=== PATIENT | female | born 1940 | race Caucasian/White ===

== ENCOUNTER 2017-09-23 16:34 | Inpatient (IN) | payer MEDICARE ==
[~2017-09-23 16:34] MED LIST: ISOVUE-370 76%-LOCM 1 ML ONE
[2017-09-23 18:04] LABS: #Eosinphils 0.1 thou/uL (0.0-0.7); #Lymphocytes 0.6 thou/uL (1.20-3.40); #Monocytes 0.1 thou/uL (0.11-0.59); #Neutrophils 11.5 thou/uL (1.40-6.50); %Basophils 0.2 % (0.0-1.0); %Monocytes 0.7 % (0.0-10.0); %Neutrophils 93.2 % (42.0-75.0); Hemoglobin 12.9 g/dL (12.0-16.0); Mean Corpuscular HGB CONC 33.1 g/dL (32.0-36.0); Mean Corpuscular Hemoglobin 30.6 pg (27.0-31.0); Mean Corpuscular Volume 92.4 fl (81.0-99.0); Mean Platelet Volume 5.9 fL (7.4-10.4); Platelet Count 254 thou/uL (130-400); RBC Distribution Width 12.6 % (11.5-14.5); Red Blood Cell (RBC) Count 4.21 mill/uL (4.20-5.40); White Blood Cell (WBC) Count 12.4 thou/uL (4.8-10.8)
[2017-09-23 18:09] LABS: INR-International Normal Ratio 1.1; Prothrombin Time 14.1 SEC (12.0-14.7)
[2017-09-23 18:27] LABS: ALT (SGPT) 15 U/L (8-55); AST (SGOT) 18 U/L (5-34); Albumin 3.6 g/dL (3.4-4.8); Alkaline Phosphatase 62 U/L (40-150); Anion Gap 12 mmol/L (10-20); BUN (Urea Nitrogen) 25 mg/dL (9.8-20.1); Bilirubin, Total 0.7 mg/dL (0.2-1.2); Calc. Creatinine Clearance 0 mL/min (70-130); Calcium 9.5 mg/dL (7.8-10.44); Carbon Dioxide 26 mmol/L (23-31); Chloride 103 mmol/L (98-107); Estimated GFR-MDRD 74; Globulin 2.3 g/dL (2.4-3.5); Glucose 138 mg/dL (83-110); Potassium 4.6 mmol/L (3.5-5.1); Protein, Total 5.9 g/dL (6.0-8.3); Sodium 136 mmol/L (136-145)
--- NOTE | 2017-09-23 18:51 | CT ---
NONCONTRAST CT HEAD: Date: 09/23/17 HISTORY: Head bleed, right-sided weakness for 2 days. COMPARISON: CT head obtained from [facility] on 09/23/17 at 1157 hours. FINDINGS: As noted on the prior exam, there is a large, heterogeneous mass, which is predominantly demonstrates increased density centrally. This is centered in the left frontoparietal and temporal lobes, with la rge amount of adjacent vasogenic edema and sulcal effacement, as well as effacement of the body of th e left lateral ventricle. This mass measures 4.5 cm x 3.8 cm in greatest dimensions. As noted on the prior study, there is again shift of the midline structures to the right measuring approximately 7.0 mm. There is a smaller increased density focus present in the right anterior frontal lobe with adjacent l ow density area probably related to adjacent edema as well. There is mass effect on the occipital horn of the left lateral ventricle due to the large cerebral ma ss on the left. There is decreased attenuation seen extending across the corpus callosum with associa conor vasogenic edema, within the posterior right frontal lobe/parietal lobe. There has been no interval change from the prior exam. IMPRESSION: Findings likely related to hemorrhagic metastatic lesions, with large lesion in the left cerebral hem isphere resulting in a large amount of vasogenic edema, mass effect, and midline shift. The vasogenic edema extends across the midline in the region of the corpus callosum and into the right cerebral he misphere. MRI is recommended. Above findings discussed with Dr. Coreas in the emergency department on 09/23/17 at 1839 hours. CODE CR. POS: [facility]
--- NOTE | 2017-09-23 19:32 | CON ---
DATE OF CONSULTATION: 09/23/2017 This is a 50-minute initial patient consult, which greater than 50% of the exam was spent counseling and coordinating patient's care. Remainder of the exam was spent in review of patient's medical vanessa rds and appropriate imaging studies CHIEF COMPLAINT: Right-sided weakness for the past 2 weeks. HISTORY OF PRESENT ILLNESS: Ms. Chase is a pleasant 76-year-old female who presents to [facility] as a transfer from [facility] [place] [place] with the above complaints. The patient s tates over the past 2 weeks, she has noticed right foot weakness, which has become progressively wors e over the past 2 days. She has noticed some balance issues and has required the use of a rolling wa lker over the past 2 weeks, but again has noticed over the past 2 days, significant decline in right foot function. The patient also notes that when looking back, she probably has weakness into the ent sixto right leg and even right arm. The patient does have some difficulty with short term and long ter m memory issues and her helps to provide some of the history. The patient and her kn ow that she stopped playing her regular bridge games due to the fact that she had difficulty remember ing her cart. This roughly began in 07/2017. The patient has a significant smoking history and does state that she stopped roughly 5 years ago. She has had a productive cough for several weeks to liz n months and was diagnosed with pneumonia 2 weeks ago, but it is unclear if she is on any antibiotics for this. Head CT done at [facility] by report notes multiple lesions into the brain most notably in the right frontal region and in the left temporal lobe. I do not have this for review at this time. The patient is also currently on Plavix, having peripheral artery stents placed in the bi lateral lower extremities roughly 6 months ago. She has not yet been seen by Oncology for the possib ility of diagnosis of lung cancer. In the [facility], she was given a loading dose of 1000 mg of Keppra and 60 mg IV of Decadron. The patient does not report any blurred vision, nausea, vomit ing or headache. PHYSICAL EXAMINATION: The patient is awake and alert and somewhat appropriate. Again, her h elps to provide some of her history. She is oriented to person and notes that she does go by gender. She does know her birthday but states that the year is 2018 and she is unsure where she currently i s. She does have mild weakness in the right upper extremity with some mild to moderate weakness in t he right lower extremity, although she is able to raise the right leg to gravity. She has good stren gth in the left upper and left lower extremities. She appears to have intact sensation to light touc h throughout. All of the extremities has no worrisome myelopathic features on exam including negativ e Waddell's bilaterally and no increased tone. She does not appear to have a pronator drift on the r ight. She does have a little difficulty with the index [id number] testing on the right. I attem pted to test her visual confrontation, but she is unable to follow this. She has multiple bruises on her skin consistent with Plavix use. Her pupils are equal, round, and reactive bilaterally. GCS cu rrently is 14 given her confusion. IMPRESSION: 1. Right upper and lower extremity weakness with multiple brain lesions. 2. History of tobacco abuse, though supposedly stopped for the past 5 years. 3. Peripheral artery disease with stent placement 6 months ago, on Plavix. PLAN: I discussed the patient's case and imaging with Dr. Fonseca. At this time, we will admit the p atient to the stroke unit with q.2 hours neuro checks. We would like all blood thinners and Plavix t o be held at this time. Also, we will keep her head of bed elevated at 30 degrees at all times. She may have a regular diet. Repeat the patient's noncontrast head CT because I am unable to review her CT scan at [facility]. I also ordered a chest, abdomen, and pelvis CT to evaluate for poss ibility of metastatic disease. We will also obtain a brain MRI with and without contrast for stereot actic protocol to evaluate these brain lesion failure. At this time, the patient does not require ne urosurgical intervention. We need more information prior to determination of the next step in treatm ent. We will follow up on head CT and of course the results of the MRI when they are available. Lawrence flores also continued the patient on maintenance dose of Keppra 500 mg IV b.i.d. and Decadron 4 mg q.6 h ours IV as well as a famotidine. Currently, the patient's white blood cell count is 12.4. We will m onitor that. Her INR right now is 1.1, PT and APTT are within the normal limits. Her sodium is good at 136 and normal creatinine. ASSESSMENT AND PLAN: Again, we will check back with the patient's studies have been completed. Amado flores also consulted our medical team to help with medical management probability of also contacting On cology, but again we will await the results of the patient's imaging studies. Please call with any q uestions or changes in patient's neurologic status.
[2017-09-23] MEDS ORDERED: Calcium Carbonate 500 MG ChewTAB PO PRN (20:41)
[2017-09-23] MEDS ORDERED: Mag-Al 1200 mg/1200 mg/30 ML UDCUP PO PRN (20:41)
[2017-09-23] MEDS ORDERED: Acetaminophen 325 MG TAB PO PRN (20:41)
[2017-09-23] MEDS ORDERED: Ondansetron HCl/PF 4 MG/2 ML Vial IVP PRN (20:41)
[2017-09-23] MEDS: Sodium Chloride 0.9% 1,000 ML IV SCH (22:36)
[2017-09-23] MEDS: Famotidine/PF 20 mg/2ml Vial SLOW IVP SCH (22:37)
[2017-09-23] MEDS: Docusate 100 MG CAP PO SCH (22:38)
[2017-09-24] MEDS: Dexamethasone 4 MG in Sodium Chloride 0.9% 50 ML IVPB SCH ×4 (00:07→17:32)
[2017-09-24 00:48] VITALS: BMI 19.5
[2017-09-24 06:19] LABS: #Basophils 0.1 thou/uL (0.0-0.2); #Eosinphils 0.1 thou/uL (0.0-0.7); #Lymphocytes 0.6 thou/uL (1.20-3.40); #Monocytes 0.4 thou/uL (0.11-0.59); #Neutrophils 8.9 thou/uL (1.40-6.50); %Basophils 0.8 % (0.0-1.0); %Eosinophils 0.8 % (0.0-10.0); %Lymphocytes 5.8 % (21.0-51.0); %Monocytes 3.9 % (0.0-10.0); %Neutrophils 88.8 % (42.0-75.0); Hemoglobin 11.6 g/dL (12.0-16.0); Mean Corpuscular HGB CONC 31.9 g/dL (32.0-36.0); Mean Corpuscular Hemoglobin 29.9 pg (27.0-31.0); Mean Corpuscular Volume 93.7 fl (81.0-99.0); Mean Platelet Volume 6.4 fL (7.4-10.4); Platelet Count 247 thou/uL (130-400); RBC Distribution Width 12.6 % (11.5-14.5); Red Blood Cell (RBC) Count 3.88 mill/uL (4.20-5.40); White Blood Cell (WBC) Count 10.1 thou/uL (4.8-10.8)
[2017-09-24 06:33] LABS: Anion Gap 11 mmol/L (10-20); BUN (Urea Nitrogen) 24 mg/dL (9.8-20.1); Calc. Creatinine Clearance 45 mL/min (70-130); Calcium 9.2 mg/dL (7.8-10.44); Carbon Dioxide 23 mmol/L (23-31); Chloride 103 mmol/L (98-107); Estimated GFR-MDRD 77; Glucose 131 mg/dL (83-110); Potassium 4.5 mmol/L (3.5-5.1); Sodium 132 mmol/L (136-145)
--- NOTE | 2017-09-24 07:46 | CT ---
CT SCAN CHEST WITH IV CONTRAST CT ABDOMEN AND PELVIS WITH IV CONTRAST: Date: 09/23/17 HISTORY: Patient with brain lesion. History of smoking. FINDINGS: CT THORAX: There is a large right hilar mass with extension into the mediastinum which measures 7.0 cm x 4.8 cm. This mass also appears to extend into the right bronchus intermedius, as well as into bronchi of the right lower lobe, although no appreciable postobstructive changes are present. There is a 1.8 cm peripherally located nodular opacity within the anterolateral right lower lobe with an opacity within the left lower lobe posteriorly measuring 3.7 cm x 1.9 cm. These peripherally loca conor opacities could be related to metastatic lesions, although focal areas of pneumonitis is a possib ility. There are emphysematous changes seen within the upper lobes bilaterally. There is a small nodular den sity present in the left upper lobe laterally measuring 1.1 cm. There is a filling defect seen within the distal portion of the trachea extending to the right mainst em bronchus. Endobronchial lesion is a possibility. This could be further evaluated with bronchoscopy . There is an enlarged lymph node in the AP window which measures approximately 1.5 cm in short axis di mension. No axillary lymph nodes are seen. Vascular calcifications seen in the coronary arteries, as well as involving the thoracic aorta. CT ABDOMEN AND PELVIS: There are a few scattered subcentimeter, too small to characterize, hypodense lesions within the left hepatic lobe which cannot be further characterized. There is scarring involving the medial aspect mid portion right kidney. Left kidney has a normal CT a ppearance. The spleen, pancreas, left adrenal gland, and urinary bladder have a normal CT appearance. There is a heterogeneous nodule involving the right adrenal gland which measures 2.4 cm. This cannot be characterized as an adrenal adenoma on this exam and may represent a metastatic lesion. There is focal narrowing seen within the body of the stomach with suggested thickening of the lynne. This may be attributable to peristalsis. A similar finding is seen within the region of the gastric a ntrum. This can be further evaluated with either upper GI or endoscopy. There is an infrarenal abdominal aortic aneurysm which measures 3.3 cm. Dense vascular calcification seen in the abdominal aorta and iliac arteries. There is colonic diverticulosis with a moderate amount of retained fecal material seen throughout the colon. There is a calcified mass within the uterus, probably related to a uterine fibroid. No lymphadenopathy is seen in the abdomen or pelvis. There is a stent partially imaged in the proximal superficial femoral arteries bilaterally. No lytic or sclerotic osseous lesions are identified. IMPRESSION: 1. Right hilar mass with extension of the mass into the bronchus intermedius and right mainstem bron chus. However, no postobstructive changes are seen at this time within the right lower lobe. There is a low density area seen within the distal trachea and right mainstem bronchus which could be related to endobronchial lesion and/or secretions. This mass in the right hilar region is likely related to primary malignancy. 2. Patchy nodular opacities in each lower lobe, which could be related to areas of pneumonitis; alth ough, metastatic lesions cannot be entirely excluded. 3. Enlarged AP window lymph node. 4. Right adrenal nodule, which is slightly heterogeneous in appearance. This cannot be accurately ch aracterized on this post enhanced CT scan exam, but given the right hilar mass, a metastatic lesion c annot be excluded. If warranted, a PET CT scan exam can be performed for further evaluation versus CT abdomen with and without IV contrast. 5. Scarring right kidney. 6. Colonic diverticulosis. 7. Infrarenal abdominal aortic aneurysm. 8. Subcentimeter, too small to characterize, hypodense lesion in left hepatic lobe. 9. Prominent vascular calcifications. POS: [facility]
[2017-09-24] MEDS ORDERED: Hydrochlorothiazide 25 MG TAB PO SCH (09:00)
--- NOTE | 2017-09-24 09:27 | PRG ---
DATE OF SERVICE: 09/24/2017 This is a 30 minute initial hospital visit note in which 30 minutes were spent in reviewing the imagi ng, record, evaluation, examination of the patient, and formulation of a plan. Greater than 50% of t he time was spent in counseling on Lelo Chase. 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 Ms. Chase who goes by Natalee, is a very pleasant 76-year-old woman with a longstanding history of nicotine use. She an d her states she ceased nicotine use 5 years ago. However, she has had COPD and was treated even a couple weeks ago for a cough. She has had a progressive failure to thrive and neurological d ecline with namely right-sided greater than left-sided weakness and word finding difficulty over the last couple months, but certainly worse over the last couple of weeks. Review of a head CT from [facility] [place] demonstrates at least 2 metastatic lesions with a large lesion in the left post erior aspect of the shahid radiata extending into the atrium of the left lateral ventricle. There is significant vasogenic edema and mild midline shift. There is a smaller lesion apparently in the rig ht frontal region with associated hypodensity consistent also with vasogenic edema. A CT scan of the chest, abdomen, and pelvis demonstrates an adrenal lesion, likely metastatic with a large right audrey r lesion with concern of tracheobronchial invasion. The patient is also on Plavix for history of per ipheral arterial disease and stenting. PHYSICAL EXAMINATION: She is alert. She is appropriate, but does have significant word finding diff iculty and pauses frequently when speaking, but is appropriate for the context. She prefers to keep her left eye closed. She has moderate right upper extremity weakness with severe right hand intrinsi c weakness and mild right lower extremity weakness, but she is able to get her right lower extremity off of the bed in antigravity fashion. She has no apparent deficits in the left upper or left lower extremity. IMPRESSION AND PLAN: She is improved with the initiation of Decadron. We are arranging for an MRI o f the brain without and with contrast. We will consult Pulmonology for bronchoscopy to see if obtain ing pathology would be possible via that route. I have also consulted Medicine for assistance with m edical assistance. I told the patient that frankly, based on the CT I am not at all optimistic that she would benefit from any surgical resection. The lesion is in her dominant hemisphere. She is rig ht-handed and I think the risk of temporary and permanent neurological deficit with surgery would be profound. The patient was also asked about the course should be lung adenocarcinoma if no treatment were pursued. We will also consult Oncology. We will follow up on the MRI, but again I do not suspe ct that this will be something that will warrant neurosurgical intervention. DIAGNOSES: 1. Multifocal intracranial masses or lesions likely lung adenocarcinoma. 2. On Plavix for history of lower extremity stenting.
[2017-09-24] MEDS: Docusate 100 MG CAP PO SCH ×2 (10:40→21:31)
[2017-09-24] MEDS: Famotidine/PF 20 mg/2ml Vial SLOW IVP SCH (10:40)
[2017-09-24] MEDS: Atorvastatin Calcium 10 MG TAB PO SCH (10:40)
[2017-09-24] MEDS: Losartan 25 MG TAB PO SCH (10:42)
--- NOTE | 2017-09-24 12:26 | MRI ---
BRAIN MRI WITH AND WITHOUT CONTRAST: 09/24/2017 HISTORY: Intracranial metastatic disease. Weakness. COMPARISON: None. TECHNIQUE: Multiplanar, multisequence MR imaging of the brain is obtained with and without contrast. FINDINGS: The diffusion-weighted imaging demonstrates no evidence for acute infarction. There is a large intraaxial lesion within the anteromedial aspect of the occipital lobe, posterior to the occipital horn of the left lateral ventricle. This lesion demonstrates extensive blooming artif act on the gradient echo imaging, evidence of hemorrhage within the lesion. This lesion measures 3.5 x 3.7 cm and demonstrates extensive peripheral irregular enhancement. There is associated mass effe ct with deviation of the occipital horn, left lateral ventricle, anteriorly, with mass effect on the corpus callosum and left to right midline shift, which measures approximately 6 mm. There is extensi ve surrounding vasogenic edema, which involves the posterior left frontal lobe, approaching the verte x, the entirety of the left parietal lobe, and the majority of the left occipital lobe. There is inc reased T2 and FLAIR signal within the corpus callosum, extending to the left of midline, with evidenc e of vasogenic edema also seen, within the medial aspect of the left parietal lobe. There is a rim e nhancing lesion, which is either subependymal or intraventricular, on the right, in the region of the foramen of Monro, measuring 9-10 mm. A third intraaxial lesion is noted in the right frontal region , anteriorly, at the axial level of the septum pellucidum. This lesion demonstrates thin rim enhance ment with an internal focus of blooming artifact, on the basis of hemorrhage or calcification. This lesion measures 2.7 cm in greatest dimension. No evidence for intraaxial lesion noted within the brainstem or cerebellum. Arterial flow voids at the axial level of the skull base appear patent on T2 weighted imaging. The i selin paranasal sinuses and mastoid air cells are well aerated. IMPRESSION: Three intracranial lesions are noted, the largest in the parietooccipital region, on the left. Findi ngs are most consistent with metastatic disease. Of note, the two larger lesions demonstrate evidenc e of hemorrhage, particularly the left sided lesion, and there is severe associated vasogenic edema a nd mass effect associated with the left-sided lesion. POS: [facility]
--- NOTE | 2017-09-24 13:14 | CON ---
DATE OF CONSULTATION: 09/24/2017 SERVICE: Pulmonary Medicine. REASON FOR CONSULTATION: Pulmonary mass. HISTORY OF PRESENT ILLNESS: The patient is a pleasant 76-year-old white female with past medical history significant for little bit of emphysema. She has a remote [id number] history of smoking, but quit 3 years ago. She was in her usual state of health until a couple of months ago where she started having increasing weight loss, and weakness. She finally presented to the hospital with some focal neurologic abnormalities. She had right-sided weakness. In the Emergency Department, CT of the head was performed demonstrated a possible mass. This prompted both an MRI and a CT of the chest, abdomen, and pelvis. On CT of the chest, abdomen, and pelvis, she had a pulmonary mass. Unfortunately, the patient takes Plavix for unrelated heart issues. Her last dose was on Sunday. She has currently been off the Plavix for 2 days now. PAST MEDICAL HISTORY: 1. COPD. 2. Dyslipidemia. 3. Hypertension. 4. Coronary artery disease. 5. Abdominal aortic aneurysm. 6. Rhinitis. 7. Spinal stenosis. 8. Osteoarthritis. PAST SURGICAL HISTORY: 1. Shoulder surgery. 2. Cataract surgery. 3. Left-sided L4-L5 hemilaminectomy and micro decompression. FAMILY HISTORY: Noncontributory. SOCIAL HISTORY: She has a [id number] history of smoking, but quit 3 years ago. She denies any alcohol, tobacco or illicit drug use. She has no exposure to chemicals, dust, asbestos, or tuberculosis. REVIEW OF SYSTEMS: General, head, ears, eyes, nose, throat, cardiovascular, respiratory, GI, , musculoskeletal, neurologic and skin is negative except as mentioned in the HPI. ALLERGIES: CLINDAMYCIN. MEDICATIONS: List for inpatient and outpatient medications were reviewed. No specific updates were made at this time. PHYSICAL EXAMINATION: VITAL SIGNS: Afebrile, pulse 74, blood pressure 132/68, respirations 15, saturation 95% on room air. GENERAL: The patient is awake, alert, in no apparent distress. LUNGS: Decent air entry. There is no prolonged expiratory phase, wheezing, rhonchi or crackles. HEART: Normal rate, regular. ABDOMEN: Soft, nontender, nondistended. Bowel sounds are positive. MUSCULOSKELETAL: No cyanosis or clubbing. There is no pitting in the bilateral lower extremities. LABORATORY DATA: WBC 10.1, hemoglobin 11.6, platelets 247,000. INR 1.1. Basic metabolic profile is essentially unremarkable otherwise. Liver function studies are unremarkable. IMAGIN. MRI of the brain demonstrates intracranial mass. Three in total are identified. The largest is in the left parietal occipital region, consistent with metastatic disease. 2. CT of the chest, abdomen, and pelvis demonstrates right hilar mass with extension of mass into the bronchus intermedius and right main stem bronchus. No postobstructive changes are seen, which is interesting given how the airways appear on the CT scan. Patchy nodular opacities are present in bilateral lungs. Pneumonitis is preferred though metastatic disease cannot be excluded. Right adrenal nodule is also present. ASSESSMENT: 1. Lung mass. 2. Chronic obstructive pulmonary disease with acute exacerbation. 3. Brain masses, multiple. 4. Adrenal mass. PLAN: Essentially, we will just need to get tissue. Doing a bronchoscopy and somebody with multiple brain masses carries a theoretical risk of herniation. There is no obvious evidence on the CT scan, or MRI of increased intracranial pressure. That being said, we need to get tissue. Our choices are bronchoscopy or biopsy of the adrenal mass. All discussed whether or not an Interventional Radiology would be able to do the adrenal lesion. If they can, I prefer that because it would stage us out as well as get us an answer. If this cannot be done because of technical difficulty, then we will be forced to do a bronchoscopy. This will be done under general anesthesia so that we can minimize any increased intracranial pressure that would be associated with the procedure. Pulmonary Critical Care will continue to follow. 70 minutes have been devoted to this patient in various activities. I personally reviewed all imaging studies and laboratory data noted within this document. For fifty percent of this time, I was interacting with the patient at the bedside or coordinating care with the care team. For the remainder of the time I was immediately available to the patient in the hospital unit. HALINA
[2017-09-24] MEDS: Sodium Chloride 0.9% 1,000 ML IV SCH (13:45)
--- NOTE | 2017-09-24 15:39 | CON ---
DATE OF CONSULTATION: 09/24/2017 REASON FOR CONSULTATION: Lung mass with brain mets. HISTORY OF PRESENT ILLNESS: The patient is a pleasant 76-year-old female, who over the last 2 weeks has had increasing weakness and confusion. She presented to the emergency room for evaluation. A brain CT showed a large heterogeneous mass in the left frontoparietal and temporal lobes. There was a large amount of vasogenic edema. The mass measured 4.5 x 3.8 cm. There was a midline shift of 7 mm. She was started on IV steroids and admitted. Neurosurgery saw the patient and ordered a brain MRI. This scan noted 3 intracranial lesions, the largest in the lnyd-[id number]-mddwgezhs region on the left and it measured 3.5 x 3.7. There was a severe vasogenic edema. The patient had a chest, abdomen, and pelvis CT which showed a 7 x 4.8 cm right hilar mass. There was a 3.7 x 1.9 left lower lobe mass. There was a right adrenal node. There were scattered enlarged lymph nodes. Patient was seen by neurosurgery and is not a surgical candidate. She has a significant history of smoking, although she is unclear on how long and how many cigarettes she has smoked. She did quit several years in the past. She states that she plays golf 3 days a week and plays bridge several days a week until approximately 3 weeks ago when she began to have some neurological symptoms. She lives at home with her spouse and was able to perform ADLs prior to this incident. Currently , she denies any headache or blurred vision, no chest pain or shortness of breath. She has right upper extremity and bilateral lower extremity weakness. PAST MEDICAL HISTORY: 1. COPD. 2. Dyslipidemia. 3. Hypertension. 4. Coronary artery disease. 5. Abdominal aortic aneurysm. 6. Spinal stenosis. 7. Arthritis. PAST SURGICAL HISTORY: 1. Shoulder surgery. 2. Cataract surgery. 3. L4-L5 hemilaminectomy. ALLERGIES: CLINDAMYCIN. HOME MEDICATIONS: 1. Atorvastatin 10 mg daily. 2. Plavix 75 mg daily. 3. Hydrochlorothiazide 25 mg daily. 4. [place] p.r.n. 5. Losartan 100 mg daily. 6. Mirtazapine 15 mg daily. 7. Prednisone 10 mg daily. FAMILY HISTORY: Noncontributory. SOCIAL HISTORY: , lives with her in [place]. No current alcohol, tobacco or illicit drug use. REVIEW OF SYSTEMS: Twelve point review of systems is negative except for noted in HPI. PHYSICAL EXAMINATION: VITAL SIGNS: Temperature is 97.7, pulse is 81, respiratory rate 14, and blood pressure is 132/68. She is 96% on room air. GENERAL: This is a well-developed, well-nourished female, in no acute distress. HEENT: Normocephalic, atraumatic. Pupils are equal and reactive to light. NECK: Supple. CARDIOVASCULAR: Regular rate and rhythm. LUNGS: Clear. ABDOMEN: Soft, nontender and there is no organomegaly. EXTREMITIES: No clubbing, cyanosis or edema. SKIN: No rash. HEMATOLOGIC: No petechia or purpura. NEUROLOGIC: Right upper extremity weakness with bilateral lower extremity weakness. PSYCHIATRIC: She is alert, oriented and answering appropriately, although she does have trouble finding words at times. PERTINENT LABORATORY AND X-RAYS: Current WBCs are 10.1, hemoglobin 11.6, hematocrit 36.4, platelet count is 247,000, 88% neutrophils, 6% lymphocytes. PT is 14.1, INR is 1.1, and PTT is 27. Chemistries: Sodium is 132, potassium is 4.5, chloride is 103, CO2 is 23, BUN is 24, creatinine is 0.73, calcium is 9.2, total bilirubin is 0.7, AST is 18, ALT is 15, alkaline phosphatase is 62, serum total protein is 5.9, albumin 3.6, and globulin 2.3. ASSESSMENT: Right hilar mass with brain metastases. DISCUSSION: Tissue biopsy is needed to obtain final diagnosis. Dr. Dalton has seen the patient and is planning a bronchoscopy on Sunday. The patient did have Plavix this weekend, so we will have to wait until the bleeding risk is reduced. She will be continued on steroids until that time. Hopefully, her neurological status will improve over the next 2 days. She may need inpatient rehab after discharge. Treatment will consist of chemoradiation. She did have excellent performance status prior to her symptoms, so I think she would be a good candidate for treatment. Plan will be discussed further once final pathology is back. Thank you for the consult. HALINA
--- NOTE | 2017-09-24 20:22 | PDOC.PN ---
- Subjective Encounter Start Date: 09/24/17 Encounter Start Time: 18:00 Patient seen and examined. No new complaints. Consult for med mngt. - Objective Resuscitation Status: Resuscitation Status FULL:Full Resuscitation MAR Reviewed: Yes Vital Signs & Weight: Vital Signs (12 hours) Temp Pulse Pulse Pulse Resp BP BP 09/24/17 18:51 82 16 09/24/17 16:08 98.4 F 117 H 20 09/24/17 14:47 94 102 H 119/63 137/62 09/24/17 13:37 81 14 09/24/17 11:53 97.7 F 74 15 09/24/17 11:01 74 79 157/74 H 146/69 H BP Pulse Ox 09/24/17 18:51 96 09/24/17 16:08 131/75 96 09/24/17 14:47 09/24/17 13:37 96 09/24/17 11:53 132/68 95 09/24/17 11:01 Weight Admit Weight 100 lb Weight 100 lb I&O: 09/23/17 09/24/17 09/25/17 06:59 06:59 06:59 Intake Total 573 600 Balance 573 600 Result Diagrams: 09/24/17 05:53 09/24/17 05:53 EKG Reviewed by me: Yes (Tele SR) Phys Exam - Physical Examination Constitutional: NAD Respiratory: no wheezing, no rales Scat rhonchi Cardiovascular: RRR, no rub Gastrointestinal: soft, non-tender, positive bowel sounds Musculoskeletal: no edema Neurological: moves all 4 limbs Dx/Plan - Plan IMPRESSION: 1. Metastatic brain lesions - on U3qyaciua/Keppra 2. COPD exacerbation 3. HTN 4. CAD / HLD / PAD PLAN: * Await Bronchoscopy * Plavix held. * Cont nebs/Atbx * Cont to monitor * Oncology/Pulm following * Full code * Cont current meds as below * DPOA - family - will confirm Review of Systems - Review of Systems Other: Cannot be obtained due to current cognition. - Medications/Allergies Allergies/Adverse Reactions: Allergies Allergy/AdvReac Type Severity Reaction Status Date / Time clindamycin Allergy Hives Verified 09/24/17 00:44 Medications: Current Medications Acetaminophen (Tylenol) 650 mg PO Q4H PRN PRN Reason: Headache/Fever or Pain Al Hydroxide/Mg Hydroxide (Maalox) 30 ml PO Q6H PRN PRN Reason: Heartburn or Indigestion Albuterol/Ipratropium (Duoneb) 3 ml NEB [id number] [facility] Last Admin: 09/24/17 18:51 Dose: 3 ml Atorvastatin Calcium (Lipitor) 10 mg PO DAILY [facility] Last Admin: 09/24/17 10:40 Dose: 10 mg Bisacodyl (Dulcolax) 10 mg PO DAILYPRN PRN PRN Reason: Constipation Calcium Carbonate (Tums) 1,000 mg PO Q4H PRN PRN Reason: Heartburn or Indigestion Docusate Sodium (Colace) 100 mg PO BID [facility] Last Admin: 09/24/17 10:40 Dose: 100 mg Famotidine (Pepcid) 20 mg PO 2100 [facility] Dexamethasone 4 mg/ Sodium (Chloride) 50.4 mls @ 100 mls/hr IVPB Q6HR [facility] Last Admin: 09/24/17 17:32 Dose: 50.4 mls Levetiracetam 500 mg/ Device 100 mls @ 200 mls/hr IVPB BID [facility] Last Admin: 09/24/17 10:34 Dose: 100 mls Sodium Chloride (Normal Saline 0.9%) 1,000 mls @ 75 mls/hr IV .[id number] [facility] Last Admin: 09/24/17 13:45 Dose: 1,000 mls Levofloxacin (Levaquin) 750 mg PO 0600 [facility] Stop: 09/28/17 06:01 Losartan Potassium (Cozaar) 100 mg PO QAM [facility] Last Admin: 09/24/17 10:42 Dose: Not Given Mirtazapine (Remeron) 15 mg PO DAILY [facility] Ondansetron HCl (Zofran) 4 mg IVP Q6H PRN PRN Reason: Nausea/Vomiting Sodium Chloride (Flush - Normal Saline) 10 ml IVF Q12HR [facility] Last Admin: 09/24/17 10:41 Dose: 10 ml Sodium Chloride (Flush - Normal Saline) 10 ml IVF PRN PRN PRN Reason: Saline Flush
[2017-09-24] MEDS: Famotidine 20 MG TAB PO SCH (21:31)
[2017-09-25] MEDS: Dexamethasone 4 MG in Sodium Chloride 0.9% 50 ML IVPB SCH ×2 (00:35→07:50)
[2017-09-25] MEDS: Sodium Chloride 0.9% 1,000 ML IV SCH ×3 (06:23→11:29)
[2017-09-25] MEDS: Dexamethasone 4 mg/ml Vial SLOW IVP SCH ×3 (06:24→18:02)
[2017-09-25] MEDS: Docusate 100 MG CAP PO SCH ×2 (09:56→21:09)
[2017-09-25] MEDS: Atorvastatin Calcium 10 MG TAB PO SCH (09:56)
[2017-09-25] MEDS: Losartan 25 MG TAB PO SCH (09:56)
[2017-09-25] MEDS: Mirtazapine 15 MG TAB PO SCH (09:56)
--- NOTE | 2017-09-25 11:12 | PRG ---
DATE OF SERVICE: 09/25/2017 SERVICE: Pulmonary Medicine. INTERVAL HISTORY: The patient is doing very well from a cardiovascular and respiratory perspective. She is breathing comfortably. Her right upper extremity and lower extremity strength is improved dramatically. She has been off of Plavix now for 3 days. She needs 1 more holiday from it before we can proceed with bronchoscopy. PHYSICAL EXAMINATION: VITAL SIGNS: Afebrile, pulse 79, blood pressure 155/66, respirations 18, saturation 100% on room air. GENERAL: The patient is awake, alert, no apparent distress. LUNGS: Excellent air entry. There is no prolonged expiratory phase, wheezing, rhonchi, or crackles present. HEART: Normal rate, regular. ABDOMEN: Soft, nontender, nondistended. Bowel sounds are positive. MUSCULOSKELETAL: No cyanosis or clubbing. There is no pitting in the bilateral lower extremities. NEUROLOGIC: Grossly nonfocal. ASSESSMENT: 1. Lung mass. 2. Chronic obstructive pulmonary disease with acute exacerbation, resolved. 3. Brain masses, multiple. 4. Adrenal nodule. DISCUSSION AND PLAN: We will move forward with bronchoscopy tomorrow. We will make her n.p.o. after midnight. Hopefully, we will be able to obtain a tissue diagnosis. I did talk with Dr. Allen, Interventional Radiology. He suggested that the pulmonary nodule will be technically difficult to get too. As such, we really do not have a different target to go after and so a bronchoscopy is our next best choice. In order to avoid increased intracranial pressure, I will have Anesthesia put her under with general anesthesia. The CT scan and MRI do not show any impending herniation. I discussed the theoretical risk of herniation with the patient at bedside with her family present. They do appreciate that it is an unlikely thing to occur, but it has been reported in the literature as being a complication with brain masses. Either way, this is the safest route moving forward and we will work on getting a lung tissue diagnosis. HALINA
--- NOTE | 2017-09-25 19:22 | PDOC.PN ---
- Subjective Encounter Start Date: 09/25/17 Encounter Start Time: 17:30 Patient seen and examined. No new complaints. No overnight events - Objective Resuscitation Status: Resuscitation Status FULL:Full Resuscitation MAR Reviewed: Yes Vital Signs & Weight: Vital Signs (12 hours) Temp Pulse Pulse Pulse Resp BP BP 09/25/17 19:04 102 H 16 09/25/17 16:00 98.3 F 100 16 09/25/17 14:49 87 09/25/17 12:00 98.4 F 92 16 09/25/17 11:05 107 H 95 164/75 H 127/70 09/25/17 07:50 97.4 F L 79 18 09/25/17 07:31 93 16 BP Pulse Ox 09/25/17 19:04 95 09/25/17 16:00 143/66 H 92 L 09/25/17 14:49 09/25/17 12:00 130/60 95 09/25/17 11:05 09/25/17 07:50 155/66 H 100 09/25/17 07:31 94 L Weight Admit Weight 100 lb Weight 100 lb I&O: 09/24/17 09/25/17 09/26/17 06:59 06:59 06:59 Intake Total 573 1500 1600 Balance 573 1500 1600 Result Diagrams: 09/24/17 05:53 09/24/17 05:53 EKG Reviewed by me: Yes (Tele SR) Phys Exam - Physical Examination Constitutional: NAD Respiratory: no wheezing, no rhonchi Cardiovascular: RRR, no rub Gastrointestinal: soft, non-tender, positive bowel sounds Musculoskeletal: no edema Neurological: moves all 4 limbs Dx/Plan - Plan DVT proph w/SCDs IMPRESSION: 1. Metastatic brain lesions - on Decadron/Keppra 2. COPD exacerbation 3. HTN 4. CAD / HLD / PAD PLAN: * Bronchoscopy tomorrow * Plavix on hold * Cont nebs/Atbx per Pulmonary * Cont to monitor * Oncology/Pulm following * Cont other meds as below Review of Systems - Review of Systems Respiratory: negative: Cough, Dry, Shortness of Breath, Hemoptysis, SOB with Excertion, Pleuritic Pain, Sputum, Wheezing Cardiovascular: negative: chest pain, palpitations, orthopnea, paroxysmal nocturnal dyspnea, edema, light headedness - Medications/Allergies Allergies/Adverse Reactions: Allergies Allergy/AdvReac Type Severity Reaction Status Date / Time clindamycin Allergy Hives Verified 09/24/17 00:44 Medications: Current Medications Acetaminophen (Tylenol) 650 mg PO Q4H PRN PRN Reason: Headache/Fever or Pain Al Hydroxide/Mg Hydroxide (Maalox) 30 ml PO Q6H PRN PRN Reason: Heartburn or Indigestion Albuterol/Ipratropium (Duoneb) 3 ml NEB [id number] [facility] Last Admin: 09/25/17 19:04 Dose: 3 ml Albuterol/Ipratropium (Duoneb) 3 ml NEB WILLCALL [facility] Atorvastatin Calcium (Lipitor) 10 mg PO DAILY [facility] Last Admin: 09/25/17 09:56 Dose: 10 mg Bisacodyl (Dulcolax) 10 mg PO DAILYPRN PRN PRN Reason: Constipation Calcium Carbonate (Tums) 1,000 mg PO Q4H PRN PRN Reason: Heartburn or Indigestion Dexamethasone (Decadron) 4 mg SLOW IVP Q6HR [facility] Last Admin: 09/25/17 18:02 Dose: 4 mg Docusate Sodium (Colace) 100 mg PO BID [facility] Last Admin: 09/25/17 09:56 Dose: 100 mg Famotidine (Pepcid) 20 mg PO 2100 [facility] Last Admin: 09/24/17 21:31 Dose: 20 mg Levetiracetam 500 mg/ Device 100 mls @ 200 mls/hr IVPB BID [facility] Last Admin: 09/25/17 10:00 Dose: 100 mls Sodium Chloride (Normal Saline 0.9%) 1,000 mls @ 75 mls/hr IV .[id number] [facility] Last Admin: 09/25/17 11:25 Dose: Not Given Sodium Chloride (Normal Saline 0.9%) 1,000 mls @ 50 mls/hr IV .Q20H [facility] Last Admin: 09/25/17 11:29 Dose: 1,000 mls Levofloxacin (Levaquin) 750 mg PO 0600 [facility] Stop: 09/28/17 06:01 Last Admin: 09/25/17 06:26 Dose: 750 mg Losartan Potassium (Cozaar) 100 mg PO QAM [facility] Last Admin: 09/25/17 09:56 Dose: 100 mg Mirtazapine (Remeron) 15 mg PO DAILY [facility] Last Admin: 09/25/17 09:56 Dose: 15 mg Ondansetron HCl (Zofran) 4 mg IVP Q6H PRN PRN Reason: Nausea/Vomiting Sodium Chloride (Flush - Normal Saline) 10 ml IVF Q12HR [facility] Last Admin: 09/25/17 09:56 Dose: Not Given Sodium Chloride (Flush - Normal Saline) 10 ml IVF PRN PRN PRN Reason: Saline Flush
[2017-09-25] MEDS: Famotidine 20 MG TAB PO SCH (21:09)
[2017-09-26] MEDS: Dexamethasone 4 mg/ml Vial SLOW IVP SCH ×3 (00:14→12:55)
[2017-09-26] MEDS: Sodium Chloride 0.9% 1,000 ML IV SCH ×2 (03:37→05:45)
[2017-09-26 06:04] LABS: Hemoglobin 10.8 g/dL (12.0-16.0); Platelet Count 239 thou/uL (130-400)
[2017-09-26 06:20] LABS: Albumin 3.4 g/dL (3.4-4.8); Anion Gap 10 mmol/L (10-20); BUN (Urea Nitrogen) 22 mg/dL (9.8-20.1); BUN/Creatinine Ratio 25.58; Calc. Creatinine Clearance 39 mL/min (70-130); Calcium 9.3 mg/dL (7.8-10.44); Carbon Dioxide 26 mmol/L (23-31); Chloride 105 mmol/L (98-107); Estimated GFR-MDRD 64; Glucose 120 mg/dL (83-110); Magnesium 1.9 mg/dL (1.6-2.6); Phosphorus 2.5 mg/dL (2.3-4.7); Potassium 4.3 mmol/L (3.5-5.1); Sodium 137 mmol/L (136-145)
[2017-09-26] MEDS ORDERED: Metoprolol Tartrate 25 MG TAB PO SCH ×2 (07:15→21:00)
[2017-09-26] MEDS ORDERED: Fentanyl 250 MCG/5 ML VIAL ONE (08:32)
[2017-09-26] MEDS ORDERED: Propofol 500 MG/50 ML VIAL ONE (08:35)
[2017-09-26] MEDS ORDERED: Succinylcholine Chloride 20 MG/ML 10 ml SYRINGE FS ONE (08:38)
[2017-09-26] MEDS ORDERED: Ondansetron HCl/PF 4 MG/2 ML Vial ONE (08:38)
[2017-09-26] MEDS ORDERED: Lidocaine 1% PF 5 ML VIAL ONE (08:38)
[2017-09-26] MEDS ORDERED: Levofloxacin 500 mg/D5W 100 ml Premix Bag ONE (08:39)
--- NOTE | 2017-09-26 08:53 | PRG ---
DATE OF SERVICE: 09/26/2017 I reviewed a MRI of the brain and it demonstrates at least 3, likely 4 intracranial metastases, 1 in the posterior fossa, perhaps more involving the left side of the dorsal medulla and the larger left d eep temporal occipital mass along with the right thalamic and right frontal. I would not recommend s urgical resection or biopsy on these. I suspect tissue could be obtained via bronchoscopy.
--- NOTE | 2017-09-26 09:42 | PRG ---
DATE OF SERVICE: 09/26/2017 SERVICE: Pulmonary Medicine. INTERVAL HISTORY: The patient is doing fine from cardiovascular and respiratory standpoint. She den ies any chest pain, shortness of breath, fevers or chills. Otherwise, she has no specific complaints this morning. She did have a run of nonsustained V-tach this morning. We gave metoprolol and we ar e going to proceed with the procedure at this point. PHYSICAL EXAMINATION: VITAL SIGNS: Afebrile, pulse 84, blood pressure 180/82, respirations 14, saturation 100% on room air . GENERAL: The patient is awake, alert, no apparent distress. LUNGS: Decent air entry. There is no prolonged expiratory phase. I do not appreciate any wheezing. HEART: Normal rate, regular. ABDOMEN: Soft, nontender, and nondistended. Bowel sounds are positive. MUSCULOSKELETAL: No cyanosis or clubbing. There is no pitting in the bilateral lower extremities. NEUROLOGIC: Grossly nonfocal today. LABORATORY DATA: Hemoglobin 10.8. Basic metabolic profile is otherwise unremarkable. Magnesium and phosphorus fall within normal limits. ASSESSMENT: 1. Pulmonary mass. 2. Chronic obstructive pulmonary disease with acute exacerbation, resolved. 3. Brain masses, multiple. 4. Adrenal nodule. 5. Nonsustained ventricular tachycardia. PLAN: We will move forward with bronchoscopy this morning. Hopefully, this will help us to understa nd what we are dealing with. Additional recommendations to follow pathology or microbiology results.
[2017-09-26] MEDS ORDERED: hydrALAZINE 20 MG/ML VIAL SLOW IVP PRN (10:27)
[2017-09-26] MEDS: Docusate 100 MG CAP PO SCH ×2 (11:05→21:04)
[2017-09-26] MEDS: Atorvastatin Calcium 10 MG TAB PO SCH (11:05)
[2017-09-26] MEDS: Mirtazapine 15 MG TAB PO SCH (11:06)
[2017-09-26] MEDS: Losartan 25 MG TAB PO SCH (12:55)
[2017-09-26] MEDS ORDERED: Nitroglycerin 0.4 MG TAB (25 Tab Bottle) PO PRN (13:15)
--- NOTE | 2017-09-26 13:28 | PDOC.PN ---
- Subjective Encounter Start Date: 09/26/17 Encounter Start Time: 12:30 Patient seen and examined. No new complaints. No overnight events. s/p Bronchosopy with biopsy today. Had NSVT earlier - Objective Resuscitation Status: Resuscitation Status FULL:Full Resuscitation MAR Reviewed: Yes Vital Signs & Weight: Vital Signs (12 hours) Temp Pulse Resp BP Pulse Ox 09/26/17 12:59 80 18 95 09/26/17 11:17 98.5 F 86 16 140/67 95 09/26/17 08:00 98.5 F 86 16 09/26/17 07:46 97.8 F 84 14 180/82 H 100 09/26/17 07:11 87 16 96 09/26/17 04:15 98 F 95 16 157/72 H 90 L 09/26/17 01:59 86 16 95 Weight Admit Weight 100 lb Weight 100 lb I&O: 09/25/17 09/26/17 09/27/17 06:59 06:59 06:59 Intake Total 1500 1600 300 Balance 1500 1600 300 Result Diagrams: 09/26/17 05:40 09/26/17 05:40 Radiology Reviewed by me: Yes (CT chest/abd - Rt hilar mass/adrenal mass) EKG Reviewed by me: Yes (Tele SR, NSVT earlier) Phys Exam - Physical Examination Constitutional: NAD Neck: no JVD Respiratory: no wheezing, no rales, no rhonchi, clear to auscultation bilateral Cardiovascular: RRR, no rub no heaves/pulsations Gastrointestinal: soft, non-tender, no distention, positive bowel sounds Musculoskeletal: no edema Neurological: non-focal, normal sensation, moves all 4 limbs Psychiatric: normal affect, A&O x 3 Dx/Plan - Plan DVT proph w/SCDs IMPRESSION: 1. NSVT today- (new problem) 2. Metastatic brain lesions - on Decadron/Keppra 3. COPD exacerbation - improving 4. HTN 5. CAD / HLD / PAD PLAN: * Echo * Cardio consult * Low dose Metoprolol * s/p Bronchoscopy - Await biopsy * Plavix on hold * Cont nebs/Atbx per Pulmonary * Cont to monitor * Oncology/Pulm following * Cont other meds as below * Cont therapy Review of Systems - Review of Systems Respiratory: negative: Cough, Dry, Shortness of Breath, Hemoptysis, SOB with Excertion, Pleuritic Pain, Sputum, Wheezing Cardiovascular: negative: chest pain, palpitations, orthopnea, paroxysmal nocturnal dyspnea, edema, light headedness Gastrointestinal: negative: Nausea, Vomiting, Abdominal Pain, Diarrhea, Constipation, Melena, Hematochezia - Medications/Allergies Allergies/Adverse Reactions: Allergies Allergy/AdvReac Type Severity Reaction Status Date / Time clindamycin Allergy Hives Verified 09/24/17 00:44 Medications: Current Medications Acetaminophen (Tylenol) 650 mg PO Q4H PRN PRN Reason: Headache/Fever or Pain Al Hydroxide/Mg Hydroxide (Maalox) 30 ml PO Q6H PRN PRN Reason: Heartburn or Indigestion Albuterol/Ipratropium (Duoneb) 3 ml NEB [id number] [facility] Last Admin: 09/26/17 12:59 Dose: 3 ml Albuterol/Ipratropium (Duoneb) 3 ml NEB WILLCALL [facility] Atorvastatin Calcium (Lipitor) 10 mg PO DAILY [facility] Last Admin: 09/26/17 11:05 Dose: 10 mg Bisacodyl (Dulcolax) 10 mg PO DAILYPRN PRN PRN Reason: Constipation Calcium Carbonate (Tums) 1,000 mg PO Q4H PRN PRN Reason: Heartburn or Indigestion Dexamethasone (Decadron) 4 mg PO Q6HR [facility] Docusate Sodium (Colace) 100 mg PO BID [facility] Last Admin: 09/26/17 11:05 Dose: 100 mg Famotidine (Pepcid) 20 mg PO 2100 [facility] Last Admin: 09/25/17 21:09 Dose: 20 mg Hydralazine HCl (Apresoline) 10 mg SLOW IVP Q4H PRN PRN Reason: SBP Greater Than 180 Sodium Chloride (Normal Saline 0.9%) 1,000 mls @ 50 mls/hr IV .Q20H [facility] Last Admin: 09/26/17 05:45 Dose: 1,000 mls Levetiracetam (Keppra) 500 mg PO BID [facility] Levofloxacin (Levaquin) 750 mg PO 0600 [facility] Stop: 09/28/17 06:01 Last Admin: 09/26/17 05:38 Dose: 750 mg Losartan Potassium (Cozaar) 100 mg PO QAM [facility] Last Admin: 09/26/17 12:55 Dose: 100 mg Metoprolol Tartrate (Lopressor) 12.5 mg PO BID [facility] Mirtazapine (Remeron) 15 mg PO DAILY [facility] Last Admin: 09/26/17 11:06 Dose: 15 mg Nitroglycerin (Nitrostat) 0.4 mg PO Q5MIN PRN PRN Reason: Chest Pain Ondansetron HCl (Zofran) 4 mg IVP Q6H PRN PRN Reason: Nausea/Vomiting Last Admin: 09/25/17 21:09 Dose: 4 mg Sodium Chloride (Flush - Normal Saline) 10 ml IVF Q12HR [facility] Last Admin: 09/26/17 11:06 Dose: 10 ml Sodium Chloride (Flush - Normal Saline) 10 ml IVF PRN PRN PRN Reason: Saline Flush
--- NOTE | 2017-09-26 16:20 | OP ---
DATE OF SERVICE: 09/26/2017 SERVICE: Pulmonary Medicine. PROCEDURES: Fiberoptic bronchoscopy with: 1. Visual airway inspection. 2. Endobronchial biopsy. 3. Bronchioalveolar lavage from the right middle lobe. PREOPERATIVE DIAGNOSIS: Pulmonary mass. POSTPROCEDURE DIAGNOSIS: Pulmonary mass. PROCEDURE SENIOR ART DIRECTOR: Mesfin Dalton M.D. MEDICATIONS: For list of medications, please refer to anesthesia documentation. PREANESTHESIA ASSESSMENT: H&P had been performed. The patient's medications and allergies were revi ewed. Informed consent was obtained after discussing the risks, benefits, and rationale for performi ng the procedure as well as alternative options. DESCRIPTION OF PROCEDURE: A timeout was performed, identifying the correct procedure and patient wit h name and date of . The diagnostic fiberoptic bronchoscope was introduced through the endotrac heal tube. The bronchoscope was advanced into the trachea and a tracheobronchial tree inspection was carried out with clear identification of the left upper lobe, lingula, left lower lobe, and right up per lobe. There was a large endobronchial mass that was completely obstructing the right bronchus in termedius. That being said, it could comfortably pass the scope beyond this thing. It had vascular markings on it. It was also quite friable and bled easily when touched. I put topical epinephrine o n the lesion and subjected to multiple endobronchial biopsies. A bronchioalveolar lavage was obtaine d from this region. Hemostasis was verified and bronchoscope was subsequently removed from the patie nt. FINDINGS: 1. Right bronchus intermedius endobronchial lesion was identified with near complete obliteration of the right middle lobe despite the fact that it was pliable and I could pass the bronchoscope distal to the lesion. 2. Secretions were thick and tenacious. There was no significant purulence to them. SPECIMENS: 1. Endobronchial biopsies, multiple. 2. BAL for routine microbiology studies and pathology. COMPLICATIONS: None. ESTIMATED BLOOD LOSS: 5 mL. FLUOROSCOPY TIME: None. DISPOSITION: The patient will go back to the post-anesthesia care unit. When she meets criteria, e will return to the medical unit.
--- NOTE | 2017-09-26 16:28 | CON ---
DATE OF CONSULTATION: 09/26/2017 REASON FOR CONSULTATION: Ventricular tachycardia, nonsustained. HISTORY OF PRESENT ILLNESS: Ms. Lelo Chase is a pleasant 76-year-old woman who I believe lives in [place], but is been here to obtain medical care. The patient was admitted to the hospital here for evaluation, I believe 09/23/2017. She was found to have a hilar mass and a mass also present on CT of the head and has been on a monitor. While she i s here, she had an episode of nonsustained ventricular tachycardia. The patient has a history of peripheral vascular disease and has previous percutaneous stent implanta tions, unknown location to the lower extremities. The family says in June, she was noted to have weight loss, a couple of months ago and weakness and came in with focal neurologic abnormalities. C T of the head revealed a mass. MRI and CT of the chest revealed pulmonary mass. PAST MEDICAL HISTORY: 1. COPD. 2. Hypertension. 3. Coronary artery disease?. 4. Abdominal aortic aneurysm, very small. 5. Spinal stenosis. 6. Osteoarthritis. PAST SURGICAL HISTORY: Shoulder surgery, cataract surgery. FAMILY HISTORY: Noncontributory. SOCIAL HISTORY: A [id number] history of smoking, quit 3 years ago. No alcohol or tobacco. REVIEW OF SYSTEMS: Constitutional: Positive for weakness and weight loss. Vision: No changes. He aring: No changes. Pulmonary: No cough or wheezing. Gastrointestinal: No nausea, vomiting, diarr hea. Skin: No rashes. MEDICATIONS: Prior to admission, she was on aspirin and Plavix. The Plavix has been held here. Oth er home medicines are atorvastatin and prednisone. PHYSICAL EXAMINATION: GENERAL: This is an underweight appearing 76-year-old woman. Her BMI is 19.5, 5 foot tall, 100 poun ds. HEENT: Eyes, sclerae nonicteric. Mouth mucous membranes moist. NECK: Supple, no lymphadenopathy. LUNGS: I do not hear wheezing or rales. No rhonchi. Breath sounds are distant. CARDIAC: No murmur, rub or gallop, but heart sounds are distant. ABDOMEN: Underweight, soft, nontender. EXTREMITIES: No clubbing, cyanosis or edema. SKIN: Warm and dry. PSYCHIATRIC: Mood and affect normal. PULSES: She has good popliteal pulses bilaterally, but very diminished pedal pulses. PERTINENT LABORATORY DATA: Sodium is 137, creatinine is 0.86. Hemoglobin is 10.8. IMAGING: EKG, sinus rhythm and what looks like an incomplete left bundle branch block. She did have one episode of wide complex tachycardia that looks like ventricular tachycardia, 09/26/2017 at 6:39 a.m., 39 beats. The rate is approximately 150 beats per minute. ASSESSMENT: 1. Currently, she has lung cancer metastatic to the brain, tissue is pending. 2. Peripheral vascular disease. 3. History of smoking. She has stopped. 4. Hypercholesterolemia, on medicines. 5. Nonsustained ventricular tachycardia. 6. History of chronic obstructive pulmonary disease, but no wheezing now. PLAN: 1. Agree with beta blockers. 2. Await echocardiogram with ejection fraction over 50%. The appropriate therapy would be beta bloc ker, antiplatelet drugs and statins. 3. She has incomplete left bundle branch block. At times, the QRS looks wider and may ultimately de velop a left bundle branch block.
[2017-09-26] MEDS: Dexamethasone 4 MG TAB PO SCH (17:51)
[2017-09-26] MEDS: Metoprolol Tartrate 25 MG TAB PO SCH (21:05)
[2017-09-26] MEDS: levETIRAcetam 500 MG TAB PO SCH (21:05)
[2017-09-26] MEDS: Famotidine 20 MG TAB PO SCH (21:05)
[2017-09-27] MEDS: Dexamethasone 4 MG TAB PO SCH ×5 (00:26→23:22)
[2017-09-27] MEDS: Sodium Chloride 0.9% 1,000 ML IV SCH ×2 (05:05→23:18)
[2017-09-27] MEDS: Metoprolol Tartrate 25 MG TAB PO SCH ×2 (08:29→20:48)
[2017-09-27] MEDS: Losartan 25 MG TAB PO SCH (08:30)
[2017-09-27] MEDS: Mirtazapine 15 MG TAB PO SCH (08:30)
[2017-09-27] MEDS: Docusate 100 MG CAP PO SCH ×2 (08:31→20:48)
[2017-09-27] MEDS: levETIRAcetam 500 MG TAB PO SCH ×2 (08:31→20:48)
[2017-09-27] MEDS: Atorvastatin Calcium 10 MG TAB PO SCH (08:31)
--- NOTE | 2017-09-27 13:19 | PRG ---
DATE OF SERVICE: 09/27/2017 SERVICE: Pulmonary Medicine. INTERVAL HISTORY: The patient is doing fantastic from a respiratory standpoint. She tolerated the p rocedure well yesterday. She denies having any hemoptysis. Her family once again had explained that she had a procedure done yesterday. She did not remember that she was even going to go for one. OBJECTIVE: VITAL SIGNS: Afebrile, pulse 78, blood pressure 143/68, respirations 16, saturation 95% on room air. GENERAL: The patient is awake, alert, no apparent distress. LUNGS: Decent air entry bilaterally with no prolonged expiratory phase, wheezing, rhonchi or crackle s. HEART: Normal rate, regular. ABDOMEN: Soft, nontender, nondistended. Bowel sounds are positive. MUSCULOSKELETAL: No cyanosis or clubbing. No pitting in the bilateral lower extremities. NEUROLOGIC: Grossly nonfocal. LABORATORY DATA: I have just got back from pathology. They suggested that this thing is most likely of neuroendocrine origin like small cell lung cancer or carcinoid. Additional staining is currently underway. ASSESSMENT: 1. Lung cancer, currently being differentiated. 2. Chronic obstructive pulmonary disease with acute exacerbation, resolved. 3. Brain masses, multiple. 4. Adrenal nodule. PLAN: The patient is doing really well from a respiratory standpoint. At this point, she has no fur ther requirements for inpatient Pulmonary or Critical Care opinion. Antibiotic will be discontinued. Her COPD exacerbation has been adequately treated. I once again interrupt her IV fluids. If she d evelops any respiratory issues, please give me a phone call. Otherwise, I will only follow intermitt ently during this hospital stay.
--- NOTE | 2017-09-27 17:43 | PDOC.PN ---
- Subjective Encounter Start Date: 09/27/17 Encounter Start Time: 12:00 Patient seen and examined. No new complaints. No overnight events - Objective Resuscitation Status: Resuscitation Status FULL:Full Resuscitation MAR Reviewed: Yes Vital Signs & Weight: Vital Signs (12 hours) Temp Pulse Pulse Pulse Resp BP BP 09/27/17 16:00 97.4 F L 88 14 09/27/17 13:23 79 18 09/27/17 11:52 98.2 F 78 16 09/27/17 10:03 76 75 191/77 H 159/75 H 09/27/17 08:00 98.2 F 78 16 09/27/17 06:05 74 16 BP Pulse Ox 09/27/17 16:00 146/67 H 94 L 09/27/17 13:23 96 09/27/17 11:52 143/68 H 95 09/27/17 10:03 09/27/17 08:00 158/74 H 92 L 09/27/17 06:05 97 Weight Admit Weight 100 lb Weight 100 lb I&O: 09/26/17 09/27/17 09/28/17 06:59 06:59 06:59 Intake Total 1599 2089 Balance 1599 2089 Result Diagrams: 09/26/17 05:40 09/26/17 05:40 EKG Reviewed by me: Yes (Tele SR) Phys Exam - Physical Examination Constitutional: NAD Respiratory: no wheezing, no rhonchi Cardiovascular: RRR, no rub Gastrointestinal: soft, non-tender, positive bowel sounds Musculoskeletal: no edema Neurological: moves all 4 limbs Dx/Plan - Plan DVT proph w/SCDs IMPRESSION: 1. Metastatic brain lesions/Small cell lung Ca - on Decadron/Keppra 2. NSVT - on betablockers 3. COPD exacerbation - improving 4. HTN 5. CAD / HLD / PAD PLAN: * Await Echo * Cardio consult * Cont Metoprolol * Plavix on hold * Cont nebs/Atbx per Pulmonary * Cont to monitor * Oncology/Pulm/Rad oncology/NSG following * Cont other meds as below * Cont therapy Review of Systems - Review of Systems Cardiovascular: negative: chest pain, palpitations, orthopnea, paroxysmal nocturnal dyspnea, edema, light headedness Gastrointestinal: negative: Nausea, Vomiting, Abdominal Pain, Diarrhea, Constipation, Melena, Hematochezia - Medications/Allergies Allergies/Adverse Reactions: Allergies Allergy/AdvReac Type Severity Reaction Status Date / Time clindamycin Allergy Hives Verified 09/24/17 00:44 Medications: Current Medications Acetaminophen (Tylenol) 650 mg PO Q4H PRN PRN Reason: Headache/Fever or Pain Al Hydroxide/Mg Hydroxide (Maalox) 30 ml PO Q6H PRN PRN Reason: Heartburn or Indigestion Albuterol/Ipratropium (Duoneb) 3 ml NEB [id number] [facility] Last Admin: 09/27/17 13:23 Dose: 3 ml Albuterol/Ipratropium (Duoneb) 3 ml NEB WILLCALL [facility] Atorvastatin Calcium (Lipitor) 10 mg PO DAILY [facility] Last Admin: 09/27/17 08:31 Dose: 10 mg Bisacodyl (Dulcolax) 10 mg PO DAILYPRN PRN PRN Reason: Constipation Calcium Carbonate (Tums) 1,000 mg PO Q4H PRN PRN Reason: Heartburn or Indigestion Dexamethasone (Decadron) 4 mg PO Q6HR [facility] Last Admin: 09/27/17 14:02 Dose: 4 mg Docusate Sodium (Colace) 100 mg PO BID [facility] Last Admin: 09/27/17 08:31 Dose: 100 mg Famotidine (Pepcid) 20 mg PO 2100 [facility] Last Admin: 09/26/17 21:05 Dose: 20 mg Hydralazine HCl (Apresoline) 10 mg SLOW IVP Q4H PRN PRN Reason: SBP Greater Than 180 Sodium Chloride (Normal Saline 0.9%) 1,000 mls @ 50 mls/hr IV .Q20H [facility] Last Admin: 09/27/17 05:05 Dose: 1,000 mls Levetiracetam (Keppra) 500 mg PO BID [facility] Last Admin: 09/27/17 08:31 Dose: 500 mg Levofloxacin (Levaquin) 750 mg PO 0600 [facility] Stop: 09/28/17 06:01 Last Admin: 09/27/17 05:05 Dose: 750 mg Losartan Potassium (Cozaar) 100 mg PO QAM [facility] Last Admin: 09/27/17 08:30 Dose: 100 mg Metoprolol Tartrate (Lopressor) 25 mg PO BID [facility] Last Admin: 09/27/17 08:29 Dose: 25 mg Mirtazapine (Remeron) 15 mg PO DAILY [facility] Last Admin: 09/27/17 08:30 Dose: 15 mg Nitroglycerin (Nitrostat) 0.4 mg PO Q5MIN PRN PRN Reason: Chest Pain Ondansetron HCl (Zofran) 4 mg IVP Q6H PRN PRN Reason: Nausea/Vomiting Last Admin: 09/25/17 21:09 Dose: 4 mg Sodium Chloride (Flush - Normal Saline) 10 ml IVF Q12HR [facility] Last Admin: 09/27/17 08:31 Dose: 10 ml Sodium Chloride (Flush - Normal Saline) 10 ml IVF PRN PRN PRN Reason: Saline Flush
--- NOTE | 2017-09-27 20:01 | CON ---
DATE OF CONSULTATION: 09/27/2017 REASON FOR CONSULTATION: Ms. Chase is a 76-year-old female, who has been diagnosed with brain metasta sis from what appears to be a clinical stage IV, T1N2M1 lung cancer. HISTORY OF PRESENT ILLNESS: Ms. Chase apparently three weeks ago was felt to have pneumonia and was t reated with antibiotics. This past Sunday, she could not walk and was confused and her took her to the emergency room in [place]. There, she underwent a CT scan, which suggested she had halle e hemorrhagic lesions in the brain. She was transferred from [place] to [facility] for evaluation by Neurosurgery and further workup. She has been placed on dexamethasone. While here, she has unde rwent a CT scan of the chest, abdomen, and pelvis and MRI of the brain. MRI of the brain showed 3 co ntrast enhancing lesions in the brain with significant vasogenic edema. One lesion measured 3.7 cm a nd the other lesion measured 2.[address] of the chest showed at least 2 lesions in the lung. One was in the right lower lobe and measured 1.8 cm. The other was in the left lower lobe and measured 3.7 cm. There was a large right hilar mass, which is extending into the mediastinum. This measured 7.0 x 4.8 cm and also appeared to extend into the right bronchus intermedius. There was an enlarged AP w indow lymph node measuring 1.5 cm. There was a heterogeneous nodule involving the right adrenal glan d. There was an infrarenal abdominal aortic aneurysm. She was evaluated by Dr. Dalton and did unde rgo a bronchoscopy on 09/26/2017. They did have to wait until she was safely off her Plavix. There was a large endobronchial mass that was completely obstructing the right bronchus intermedius. The s cope could be passed beyond the mass. The lesion was quite friable. Biopsy and brushings were perfo rmed. Preliminary pathology has suggested carcinoma, but final pathology is not yet available. I saucedo ve been asked to see the patient to discuss her options for treatment. Since being started on the st eroids, she has improved a little. However, she is still not ambulating on her own. She has right l eg weakness. She denies any headaches or nausea or vomiting. She does [facility] and was told when she was diagnosed with pneumonia that she needed to wear her oxygen continuous ly. Here, she has not been on oxygen. She has had at least a 10 pound weight loss recently. She de nies any chest pain or other pain and voices no other complaints. PAST MEDICAL HISTORY: 1. COPD. 2. Hypertension. 3. Peripheral vascular disease, status post stent placement in the artery leading to both lower extr emities. 4. Status post right partial nephrectomy. 5. Status post lower lumbar laminectomy. MEDICATIONS: Dexamethasone, Pepcid, Keppra, Levaquin, metoprolol, losartan, Remeron, and DuoNeb inha lers. ALLERGIES: CLINDAMYCIN, which caused a rash. SOCIAL HISTORY: She did play golf up until about 2 years ago. 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 She lives in [place], [place] with her . She has no cigarette use. Previously, she smoked 1 pa ck per week and did so for many years. She does drink an occasional glass of wine with dinner. FAMILY HISTORY: Her father at age 85 from lung cancer. Her mother at age 99 from old age. She has other family members on her father's side with malignancy. REVIEW OF SYSTEMS: A 12-system review of systems is otherwise negative. PHYSICAL EXAMINATION: VITAL SIGNS: Height 5 feet, weight 100 pounds, blood pressure is 143/68, pulse is 78, respirations a re 16, temperature 98.2, O2 saturation is 95% on room air. GENERAL: She is alert, but oriented only to person. She is not oriented to place or time. [place] performance status is 40% to 50%. She does not completely follow commands, but does answer questio ns. EYES: Pupils are equal, round, and reactive to light. Extraocular movements are intact. ENT: Oral cavity and oropharynx normal without lesion or erythema. Palate elevates symmetrically. Gingiva is intact. NECK: Supple, without cervical, supraclavicular adenopathy. No thyromegaly. Larynx midline. LUNGS: Breathing nonlabored. Clear to auscultation and percussion. CARDIOVASCULAR: Heart, regular rate and rhythm without murmur. No lower extremity edema. BACK: No tenderness on fist percussion of her spine. LYMPHATIC: No axillary or inguinal adenopathy. ABDOMEN: Bowel sounds present. Soft, nontender, nondistended, without mass or hepatosplenomegaly. Liver percussed to normal size. SKIN: Without rash or purpura. NEUROLOGIC: Cranial nerves II-XII grossly intact. Motor strength is 5/5 in both upper extremities i n all muscle groups tested. In her left lower extremity, her motor strength is normal in all muscle groups tested. In her right lower extremity, she is barely able to lift her foot off the bed, rated at 3/5. Distally, her strength is better at 4/5. Reflexes, are brisk but symmetrical. Gait was not tested. LABORATORY DATA: Pathology is currently pending. CBC revealed a white blood cell count of 10,100 wi th hemoglobin of 11.6, hematocrit of 36.4, platelet count of 247,000. Chemistry group revealed casper l appearing electrolytes. Albumin was 3.4. RADIOLOGIC: MRI of the brain and CT scan of the chest, abdomen, and pelvis were all personally revie wed. On the MRI of the brain, she has 2 large brain metastasis and a third lesion also. There is parra rrounding vasogenic edema. There is some evidence of hemorrhage in the mass. She does have midline shift. A CT of the chest showed a right lower lobe lung mass measuring 1.8 cm and the left lower lob e lung mass measuring 3.7 cm. These are spiculated in appearance and suspicious. She has a large ma ss involving the right hilum and extending into the mediastinum measuring 7 cm. This does extend int o the right bronchus intermedius. No appreciable postobstructive changes were seen. There was quest ion of a 1.5 cm AP window lymph node. Her right adrenal gland had a nodule measuring 2.4 cm, which i s concerning. ASSESSMENT: Ms. Chase is a 76-year-old female with a stage IV lung cancer with brain metastasis. The pathology is currently pending. Apparently this is a carcinoma, but we are still waiting to determi ne whether it is nonsmall cell or small cell. PLAN: Likely this is going to be a nonsmall cell carcinoma, although we will need to wait the final pathology to confirm that. If it is nonsmall cell carcinoma, then her prognosis is extremely poor. Her survival would likely only be measured in a few months and treatment with whole-brain radiation t herapy, which would be her only option for treatment would perhaps at best only extend her survival b y a few weeks or a few months. I did discuss with them the logistics, benefits, and risk of whole-br ain radiation therapy. Side effects would include, but not be limited to skin reaction, fatigue, low er blood counts, hair losses may be permanent, headache, nausea, vomiting, and possible long-term eff ects on her cognition or memory. They understand that the disease would not be curable. There is a chance that radiation could make her symptoms better including her leg weakness and confusion, but it also may not make the symptoms better. If this were to be small cell carcinoma of the lung, then th e prognosis would be a little better, but it would still not be curable. Nevertheless, we could pote ntially get some more benefit in terms of treatment rather than just a few weeks to a few months. Sh e may live significantly longer given that this is responsive to treatment, but certainly is still no t curable. This was all discussed with them in depth. If it is nonsmall cell cancer, they are not c ertain that they wish to pursue any treatment. They are hoping to get her treatment in [place] since that is where they live and it is somewhat of a hardship for them to come here for treatme nt. We will await the final pathology and then let them make a decision regarding treatment. We amish l continue to follow with you. Thank you for this interesting consultation.
[2017-09-27] MEDS: Famotidine 20 MG TAB PO SCH (20:48)
[2017-09-28] MEDS: Dexamethasone 4 MG TAB PO SCH ×4 (05:53→23:19)
[2017-09-28] MEDS: levETIRAcetam 500 MG TAB PO SCH ×2 (08:11→20:31)
[2017-09-28] MEDS: Atorvastatin Calcium 10 MG TAB PO SCH (08:11)
[2017-09-28] MEDS: Losartan 25 MG TAB PO SCH (08:11)
[2017-09-28] MEDS: Metoprolol Tartrate 25 MG TAB PO SCH ×2 (08:11→20:31)
[2017-09-28] MEDS: Docusate 100 MG CAP PO SCH ×2 (08:11→20:31)
[2017-09-28] MEDS: Mirtazapine 15 MG TAB PO SCH (08:11)
--- NOTE | 2017-09-28 14:17 | PRG ---
DATE OF SERVICE: 09/28/2017 SUBJECTIVE: The patient is out of the room. She is over getting radiotherapy. I came by to see her yesterday as well and she was getting radiotherapy. Echocardiogram showed normal left ventricular f unction with normal ejection fraction. ASSESSMENT: 1. Ventricular tachycardia, nonsustained, asymptomatic. 2. Peripheral vascular disease. 3. 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 PLAN: 1. Continue beta blockers, metoprolol 25 mg twice a day. 2. Resume antiplatelet drugs if feasible from an Oncology standpoint. 3. We will sign off at this time, could consider outpatient stress testing, but it looked like her m ain problem clearly is the metastatic cancer to her brain which is being treated aggressively now. L yas-term prognosis is guarded.
--- NOTE | 2017-09-28 14:38 | PDOC.PN ---
- Subjective Encounter Start Date: 09/28/17 Encounter Start Time: 08:30 Patient seen and examined. No new complaints. No overnight events. No new focal deficits. - Objective Resuscitation Status: Resuscitation Status FULL:Full Resuscitation MAR Reviewed: Yes Vital Signs & Weight: Vital Signs (12 hours) Temp Pulse Resp BP Pulse Ox 09/28/17 11:41 97.8 F 68 15 124/61 95 09/28/17 08:00 98.2 F 80 16 94 L 09/28/17 07:47 98.2 F 80 16 141/75 H 94 L 09/28/17 03:40 98.2 F 74 16 143/73 H 94 L Weight Admit Weight 100 lb Weight 100 lb I&O: 09/27/17 09/28/17 09/29/17 06:59 06:59 06:59 Intake Total 2089 500 Balance 2089 500 Result Diagrams: 09/26/17 05:40 09/26/17 05:40 EKG Reviewed by me: Yes (Tele SR) Phys Exam - Physical Examination Constitutional: NAD Respiratory: no wheezing, no rhonchi Cardiovascular: RRR, no rub Gastrointestinal: soft, non-tender, positive bowel sounds Musculoskeletal: no edema Neurological: moves all 4 limbs Dx/Plan - Plan DVT proph w/SCDs IMPRESSION: 1. Metastatic brain lesions/Small cell lung Ca - on Decadron/Keppra 2. NSVT - on betablockers, EF normal 3. COPD exacerbation - improved 4. HTN 5. CAD / HLD / PAD PLAN: * Start low dose ASA per Cardio - I confirmed with Dr Cormier and Rajeev Clemente (both are ok with ASA) * Cont Metoprolol * Plavix on hold - Not to be restarted per Oncology due to risk of hemorrhage * Cont nebs/Atbx per Pulmonary * Cont to monitor * Cardio/Oncology/Pulm/Rad oncology/NSG following * Cont other meds as below * Cont therapy * Cont Radiation per Oncology * DC Tele per Cardiology Review of Systems - Review of Systems Respiratory: negative: Cough, Dry, Shortness of Breath, Hemoptysis, SOB with Excertion, Pleuritic Pain, Sputum, Wheezing Cardiovascular: negative: chest pain, palpitations, orthopnea, paroxysmal nocturnal dyspnea, edema, light headedness - Medications/Allergies Allergies/Adverse Reactions: Allergies Allergy/AdvReac Type Severity Reaction Status Date / Time clindamycin Allergy Hives Verified 09/24/17 00:44 Medications: Current Medications Acetaminophen (Tylenol) 650 mg PO Q4H PRN PRN Reason: Headache/Fever or Pain Al Hydroxide/Mg Hydroxide (Maalox) 30 ml PO Q6H PRN PRN Reason: Heartburn or Indigestion Albuterol/Ipratropium (Duoneb) 3 ml NEB [id number] [facility] Last Admin: 09/28/17 13:52 Dose: Not Given Albuterol/Ipratropium (Duoneb) 3 ml NEB WILLCALL [facility] Atorvastatin Calcium (Lipitor) 10 mg PO DAILY [facility] Last Admin: 09/28/17 08:11 Dose: 10 mg Bisacodyl (Dulcolax) 10 mg PO DAILYPRN PRN PRN Reason: Constipation Calcium Carbonate (Tums) 1,000 mg PO Q4H PRN PRN Reason: Heartburn or Indigestion Dexamethasone (Decadron) 4 mg PO Q6HR [facility] Last Admin: 09/28/17 12:47 Dose: 4 mg Docusate Sodium (Colace) 100 mg PO BID [facility] Last Admin: 09/28/17 08:11 Dose: 100 mg Famotidine (Pepcid) 20 mg PO 2100 [facility] Last Admin: 09/27/17 20:48 Dose: 20 mg Hydralazine HCl (Apresoline) 10 mg SLOW IVP Q4H PRN PRN Reason: SBP Greater Than 180 Sodium Chloride (Normal Saline 0.9%) 1,000 mls @ 50 mls/hr IV .Q20H [facility] Last Admin: 09/27/17 23:18 Dose: Not Given Levetiracetam (Keppra) 500 mg PO BID [facility] Last Admin: 09/28/17 08:11 Dose: 500 mg Losartan Potassium (Cozaar) 100 mg PO QAM [facility] Last Admin: 09/28/17 08:11 Dose: 100 mg Metoprolol Tartrate (Lopressor) 25 mg PO BID [facility] Last Admin: 09/28/17 08:11 Dose: 25 mg Mirtazapine (Remeron) 15 mg PO DAILY [facility] Last Admin: 09/28/17 08:11 Dose: 15 mg Nitroglycerin (Nitrostat) 0.4 mg PO Q5MIN PRN PRN Reason: Chest Pain Ondansetron HCl (Zofran) 4 mg IVP Q6H PRN PRN Reason: Nausea/Vomiting Last Admin: 09/25/17 21:09 Dose: 4 mg Sodium Chloride (Flush - Normal Saline) 10 ml IVF Q12HR [facility] Last Admin: 09/28/17 08:12 Dose: Not Given Sodium Chloride (Flush - Normal Saline) 10 ml IVF PRN PRN PRN Reason: Saline Flush
[2017-09-28] MEDS: Famotidine 20 MG TAB PO SCH (20:31)
[2017-09-28] MEDS: Sodium Chloride 0.9% 1,000 ML IV SCH (23:18)
[2017-09-29] MEDS: Dexamethasone 4 MG TAB PO SCH ×3 (05:36→17:35)
[2017-09-29] MEDS: Bisacodyl 5 MG TAB PO PRN (09:00)
[2017-09-29] MEDS: Docusate 100 MG CAP PO SCH (09:01)
[2017-09-29] MEDS: Atorvastatin Calcium 10 MG TAB PO SCH (09:01)
[2017-09-29] MEDS: Aspirin 81 mg Enteric Coated Tablet PO SCH (09:01)
[2017-09-29] MEDS: levETIRAcetam 500 MG TAB PO SCH ×2 (09:02→20:09)
[2017-09-29] MEDS: Losartan 25 MG TAB PO SCH (09:02)
[2017-09-29] MEDS: Mirtazapine 15 MG TAB PO SCH (09:03)
[2017-09-29] MEDS: Metoprolol Tartrate 25 MG TAB PO SCH ×2 (09:03→20:09)
[2017-09-29] MEDS ORDERED: Bisacodyl 10 MG SUPP PR PRN (16:52)
[2017-09-29] MEDS ORDERED: hydrALAZINE 20 MG/ML VIAL SLOW IVP PRN (16:55)
--- NOTE | 2017-09-29 16:58 | PDOC.PN ---
- Subjective Encounter Start Date: 09/29/17 Encounter Start Time: 10:00 Patient seen and examined. Somnolent. Constipated No overnight events - Objective Resuscitation Status: Resuscitation Status FULL:Full Resuscitation Vital Signs & Weight: Vital Signs (12 hours) Temp Pulse Resp BP Pulse Ox 09/29/17 15:38 99 F 84 16 116/63 92 L 09/29/17 14:49 73 95 09/29/17 11:59 98.3 F 76 20 126/64 95 09/29/17 08:55 98.4 F 79 14 94 L 09/29/17 07:48 98.4 F 79 14 150/74 H 94 L 09/29/17 07:28 76 95 Weight Admit Weight 100 lb Weight 100 lb I&O: 09/28/17 09/29/17 09/30/17 06:59 06:59 06:59 Intake Total 500 240 740 Balance 500 240 740 Result Diagrams: 09/26/17 05:40 09/26/17 05:40 Phys Exam - Physical Examination Constitutional: NAD Respiratory: no wheezing, no rhonchi Cardiovascular: RRR, no rub Gastrointestinal: soft, non-tender, positive bowel sounds Musculoskeletal: no edema Neurological: moves all 4 limbs Dx/Plan - Plan DVT proph w/SCDs IMPRESSION: 1. Metastatic brain lesions/Small cell lung Ca - on Decadron/Keppra 2. NSVT - on betablockers, EF normal 3. COPD exacerbation - improved 4. HTN 5. CAD / HLD / PAD - on ASA / Constipation PLAN: * Cont Metoprolol * Treat constipation * Hold Losartan due to poor appetite * Change Remeron to HS due to somnolence * Cont nebs/Atbx per Pulmonary * Cont to monitor * Cardio/Oncology/Pulm/Rad oncology/NSG following * Cont other meds as below * Cont therapy * Cont Radiation per Oncology * DC in 1-2 days if stable Review of Systems - Review of Systems Respiratory: negative: Cough, Dry, Shortness of Breath, Hemoptysis, SOB with Excertion, Pleuritic Pain, Sputum, Wheezing Cardiovascular: negative: chest pain, palpitations, orthopnea, paroxysmal nocturnal dyspnea, edema, light headedness - Medications/Allergies Allergies/Adverse Reactions: Allergies Allergy/AdvReac Type Severity Reaction Status Date / Time clindamycin Allergy Hives Verified 09/24/17 00:44 Medications: Current Medications Acetaminophen (Tylenol) 650 mg PO Q4H PRN PRN Reason: Headache/Fever or Pain Al Hydroxide/Mg Hydroxide (Maalox) 30 ml PO Q6H PRN PRN Reason: Heartburn or Indigestion Albuterol/Ipratropium (Duoneb) 3 ml NEB [id number] [facility] Last Admin: 09/29/17 14:49 Dose: 3 ml Albuterol/Ipratropium (Duoneb) 3 ml NEB [facility] Aspirin (Ecotrin) 81 mg PO DAILY [facility] Last Admin: 09/29/17 09:01 Dose: 81 mg Atorvastatin Calcium (Lipitor) 10 mg PO DAILY [facility] Last Admin: 09/29/17 09:01 Dose: 10 mg Bisacodyl (Dulcolax) 10 mg PO DAILYPRN PRN PRN Reason: Constipation Last Admin: 09/29/17 09:00 Dose: 10 mg Bisacodyl (Dulcolax) 10 mg [place] DAILYPRN PRN PRN Reason: Constipation Calcium Carbonate (Tums) 1,000 mg PO Q4H PRN PRN Reason: Heartburn or Indigestion Dexamethasone (Decadron) 4 mg PO Q6HR [facility] Last Admin: 09/29/17 12:12 Dose: 4 mg Famotidine (Pepcid) 20 mg PO 2100 [facility] Last Admin: 09/28/17 20:31 Dose: 20 mg Hydralazine HCl (Apresoline) 10 mg SLOW IVP Q4H PRN PRN Reason: SBP Greater Than 180 Levetiracetam (Keppra) 500 mg PO BID [facility] Last Admin: 09/29/17 09:02 Dose: 500 mg Metoprolol Tartrate (Lopressor) 25 mg PO BID [facility] Last Admin: 09/29/17 09:03 Dose: 25 mg Mirtazapine (Remeron) 15 mg PO HS [facility] Nitroglycerin (Nitrostat) 0.4 mg PO Q5MIN PRN PRN Reason: Chest Pain Polyethylene Glycol (Miralax) 17 gm PO DAILY [facility] Senna/Docusate Sodium (Senokot S) 2 tab PO BID [facility]
[2017-09-29 17:18] LABS: Fungus Stain Final report (.)
[2017-09-29] MEDS: Senokot S 8.6-50 MG TAB PO SCH (20:09)
[2017-09-29] MEDS: Famotidine 20 MG TAB PO SCH (20:09)
[2017-09-30] MEDS: Dexamethasone 4 MG TAB PO SCH ×5 (00:07→23:16)
[2017-09-30 05:52] LABS: #Lymphocytes 0.6 thou/uL (1.20-3.40); #Monocytes 0.5 thou/uL (0.11-0.59); #Neutrophils 11.2 thou/uL (1.40-6.50); %Basophils 0.2 % (0.0-1.0); %Eosinophils 0.3 % (0.0-10.0); %Monocytes 4.3 % (0.0-10.0); %Neutrophils 90.3 % (42.0-75.0); Hemoglobin 12.6 g/dL (12.0-16.0); Mean Corpuscular HGB CONC 33.5 g/dL (32.0-36.0); Mean Corpuscular Hemoglobin 30.7 pg (27.0-31.0); Mean Corpuscular Volume 91.8 fl (81.0-99.0); Mean Platelet Volume 6.5 fL (7.4-10.4); Platelet Count 183 thou/uL (130-400); RBC Distribution Width 13.3 % (11.5-14.5); Red Blood Cell (RBC) Count 4.11 mill/uL (4.20-5.40); White Blood Cell (WBC) Count 12.4 thou/uL (4.8-10.8)
[2017-09-30 06:19] LABS: Albumin 3.2 g/dL (3.4-4.8); Anion Gap 11 mmol/L (10-20); BUN (Urea Nitrogen) 40 mg/dL (9.8-20.1); BUN/Creatinine Ratio 48.19; Calc. Creatinine Clearance 40 mL/min (70-130); Carbon Dioxide 25 mmol/L (23-31); Chloride 103 mmol/L (98-107); Estimated GFR-MDRD 66; Glucose 114 mg/dL (83-110); Phosphorus 3.5 mg/dL (2.3-4.7); Potassium 4.5 mmol/L (3.5-5.1); Sodium 134 mmol/L (136-145)
[2017-09-30] MEDS: Senokot S 8.6-50 MG TAB PO SCH ×2 (08:46→20:04)
[2017-09-30] MEDS: levETIRAcetam 500 MG TAB PO SCH ×2 (08:46→20:04)
[2017-09-30] MEDS: Metoprolol Tartrate 25 MG TAB PO SCH ×2 (08:46→20:05)
[2017-09-30] MEDS: Atorvastatin Calcium 10 MG TAB PO SCH (08:46)
[2017-09-30] MEDS: Aspirin 81 mg Enteric Coated Tablet PO SCH (08:46)
[2017-09-30] MEDS: Polyethylene Glycol 3350 17 GM Packet PO SCH (08:47)
--- NOTE | 2017-09-30 18:43 | PDOC.PN ---
- Subjective Encounter Start Date: 09/30/17 Encounter Start Time: 08:00 Patient seen and examined. No new complaints. No overnight events. No new CP/SOB /Palpitations - Objective Resuscitation Status: Resuscitation Status FULL:Full Resuscitation MAR Reviewed: Yes Vital Signs & Weight: Vital Signs (12 hours) Temp Pulse Resp BP Pulse Ox 09/30/17 07:42 98.9 F 76 16 137/71 96 Weight Admit Weight 100 lb Weight 100 lb I&O: 09/29/17 09/30/17 10/01/17 06:59 06:59 06:59 Intake Total 240 740 120 Balance 240 740 120 Result Diagrams: 09/30/17 05:34 09/30/17 05:34 Phys Exam - Physical Examination Constitutional: NAD Respiratory: no wheezing, no rhonchi Cardiovascular: RRR, no rub Gastrointestinal: soft, non-tender, positive bowel sounds Musculoskeletal: no edema Neurological: moves all 4 limbs Dx/Plan - Plan plan discussed w/ family, PT/OT, social media project manager IMPRESSION: 1. Metastatic brain lesions/Small cell lung Ca - on Decadron/Keppra/Radiation 2. NSVT - on betablockers, EF normal 3. COPD exacerbation - improved 4. HTN 5. CAD / HLD / PAD - on ASA / Constipation PLAN: * Cont current meds as below including Metoprolol * Cont therapy * Cont Miralax/Sen-S * Cont nebs/Atbx per Pulmonary * Oncology/Pulm/Rad oncology/NSG following * Cont Radiation per Oncology * DC planning * SNF vs Rehab Review of Systems - Review of Systems Respiratory: negative: Cough, Dry, Shortness of Breath, Hemoptysis, SOB with Excertion, Pleuritic Pain, Sputum, Wheezing Cardiovascular: negative: chest pain, palpitations, orthopnea, paroxysmal nocturnal dyspnea, edema, light headedness Gastrointestinal: Constipation. negative: Nausea, Vomiting, Abdominal Pain, Diarrhea, Melena, Hematochezia - Medications/Allergies Allergies/Adverse Reactions: Allergies Allergy/AdvReac Type Severity Reaction Status Date / Time clindamycin Allergy Hives Verified 09/24/17 00:44 Medications: Current Medications Acetaminophen (Tylenol) 650 mg PO Q4H PRN PRN Reason: Headache/Fever or Pain Al Hydroxide/Mg Hydroxide (Maalox) 30 ml PO Q6H PRN PRN Reason: Heartburn or Indigestion Albuterol/Ipratropium (Duoneb) 3 ml NEB [id number] [facility] Last Admin: 09/30/17 13:22 Dose: Not Given Albuterol/Ipratropium (Duoneb) 3 ml NEB [facility] Aspirin (Ecotrin) 81 mg PO DAILY [facility] Last Admin: 09/30/17 08:46 Dose: 81 mg Atorvastatin Calcium (Lipitor) 10 mg PO DAILY [facility] Last Admin: 09/30/17 08:46 Dose: 10 mg Bisacodyl (Dulcolax) 10 mg PO DAILYPRN PRN PRN Reason: Constipation Last Admin: 09/29/17 09:00 Dose: 10 mg Bisacodyl (Dulcolax) 10 mg [place] DAILYPRN PRN PRN Reason: Constipation Last Admin: 09/29/17 17:35 Dose: 10 mg Calcium Carbonate (Tums) 1,000 mg PO Q4H PRN PRN Reason: Heartburn or Indigestion Dexamethasone (Decadron) 4 mg PO Q6HR [facility] Last Admin: 09/30/17 17:54 Dose: 4 mg Famotidine (Pepcid) 20 mg PO 2100 [facility] Last Admin: 09/29/17 20:09 Dose: 20 mg Hydralazine HCl (Apresoline) 10 mg SLOW IVP Q4H PRN PRN Reason: SBP Greater Than 180 Levetiracetam (Keppra) 500 mg PO BID [facility] Last Admin: 09/30/17 08:46 Dose: 500 mg Metoprolol Tartrate (Lopressor) 25 mg PO BID [facility] Last Admin: 09/30/17 08:46 Dose: 25 mg Mirtazapine (Remeron) 15 mg PO HS [facility] Nitroglycerin (Nitrostat) 0.4 mg PO Q5MIN PRN PRN Reason: Chest Pain Polyethylene Glycol (Miralax) 17 gm PO DAILY [facility] Last Admin: 09/30/17 08:47 Dose: 17 gm Senna/Docusate Sodium (Senokot S) 2 tab PO BID [facility] Last Admin: 09/30/17 08:46 Dose: 2 tab
[2017-09-30] MEDS: Famotidine 20 MG TAB PO SCH (20:04)
[2017-09-30] MEDS: Mirtazapine 15 MG TAB PO SCH (20:04)
[2017-10-01] MEDS: Dexamethasone 4 MG TAB PO SCH ×3 (05:36→18:19)
[2017-10-01] MEDS: levETIRAcetam 500 MG TAB PO SCH ×2 (09:49→20:10)
[2017-10-01] MEDS: Polyethylene Glycol 3350 17 GM Packet PO SCH (09:49)
[2017-10-01] MEDS: Senokot S 8.6-50 MG TAB PO SCH ×2 (09:49→20:10)
[2017-10-01] MEDS: Metoprolol Tartrate 25 MG TAB PO SCH ×2 (09:50→20:13)
[2017-10-01] MEDS: Aspirin 81 mg Enteric Coated Tablet PO SCH (09:50)
[2017-10-01] MEDS: Atorvastatin Calcium 10 MG TAB PO SCH (09:50)
[2017-10-01] MEDS: Mirtazapine 15 MG TAB PO SCH (20:10)
--- NOTE | 2017-10-01 20:44 | PDOC.PN ---
- Subjective Encounter Start Date: 10/01/17 Encounter Start Time: 10:15 Patient seen and examined. No new complaints. No overnight events. Unable to walk without assistance - Objective Resuscitation Status: Resuscitation Status FULL:Full Resuscitation MAR Reviewed: Yes Vital Signs & Weight: Vital Signs (12 hours) Temp Pulse Resp BP Pulse Ox 10/01/17 19:32 97.9 F 79 12 97/51 L 98 10/01/17 19:12 76 16 94 L 10/01/17 14:35 73 16 93 L Weight Admit Weight 100 lb Weight 100 lb I&O: 09/30/17 10/01/17 10/02/17 06:59 06:59 06:59 Intake Total 740 220 480 Balance 740 220 480 Result Diagrams: 09/30/17 05:34 09/30/17 05:34 Phys Exam - Physical Examination Constitutional: NAD Respiratory: no wheezing, no rhonchi Cardiovascular: RRR, no rub Gastrointestinal: soft, non-tender, positive bowel sounds Musculoskeletal: no edema Neurological: moves all 4 limbs Dx/Plan - Plan DVT proph w/SCDs IMPRESSION: 1. Metastatic brain lesions/Small cell lung Ca - on Decadron/Keppra/Radiation 2. NSVT - on betablockers, EF normal 3. COPD exacerbation - improved 4. HTN 5. CAD / HLD / PAD - on ASA / Constipation PLAN: * Cont Radiation per Oncology * Cont current meds as below including Metoprolol * Oncology/Pulm/Rad oncology/NSG following * DC planning * DC home if able to ambulate in AM Review of Systems - Review of Systems Respiratory: negative: Cough, Dry, Shortness of Breath, Hemoptysis, SOB with Excertion, Pleuritic Pain, Sputum, Wheezing Cardiovascular: negative: chest pain, palpitations, orthopnea, paroxysmal nocturnal dyspnea, edema, light headedness - Medications/Allergies Allergies/Adverse Reactions: Allergies Allergy/AdvReac Type Severity Reaction Status Date / Time clindamycin Allergy Hives Verified 09/24/17 00:44 Medications: Current Medications Acetaminophen (Tylenol) 650 mg PO Q4H PRN PRN Reason: Headache/Fever or Pain Al Hydroxide/Mg Hydroxide (Maalox) 30 ml PO Q6H PRN PRN Reason: Heartburn or Indigestion Albuterol/Ipratropium (Duoneb) 3 ml NEB [id number] [facility] Last Admin: 10/01/17 19:12 Dose: 3 ml Albuterol/Ipratropium (Duoneb) 3 ml NEB [facility] [facility] Aspirin (Ecotrin) 81 mg PO DAILY [facility] Last Admin: 10/01/17 09:50 Dose: 81 mg Atorvastatin Calcium (Lipitor) 10 mg PO DAILY [facility] Last Admin: 10/01/17 09:50 Dose: 10 mg Bisacodyl (Dulcolax) 10 mg PO DAILYPRN PRN PRN Reason: Constipation Last Admin: 09/29/17 09:00 Dose: 10 mg Bisacodyl (Dulcolax) 10 mg [place] DAILYPRN PRN PRN Reason: Constipation Last Admin: 09/29/17 17:35 Dose: 10 mg Calcium Carbonate (Tums) 1,000 mg PO Q4H PRN PRN Reason: Heartburn or Indigestion Dexamethasone (Decadron) 4 mg PO Q6HR [facility] Last Admin: 10/01/17 18:19 Dose: 4 mg Famotidine (Pepcid) 20 mg PO 2100 [facility] Last Admin: 09/30/17 20:04 Dose: 20 mg Hydralazine HCl (Apresoline) 10 mg SLOW IVP Q4H PRN PRN Reason: SBP Greater Than 180 Levetiracetam (Keppra) 500 mg PO BID [facility] Last Admin: 10/01/17 20:10 Dose: 500 mg Metoprolol Tartrate (Lopressor) 25 mg PO BID [facility] Last Admin: 10/01/17 20:13 Dose: Not Given Mirtazapine (Remeron) 15 mg PO HS [facility] Last Admin: 10/01/17 20:10 Dose: 15 mg Nitroglycerin (Nitrostat) 0.4 mg PO Q5MIN PRN PRN Reason: Chest Pain Polyethylene Glycol (Miralax) 17 gm PO DAILY [facility] Last Admin: 10/01/17 09:49 Dose: 17 gm Senna/Docusate Sodium (Senokot S) 2 tab PO BID [facility] Last Admin: 10/01/17 20:10 Dose: 2 tab
[2017-10-01] MEDS: Famotidine 20 MG TAB PO SCH (20:49)
[2017-10-01] MEDS: Bisacodyl 5 MG TAB PO PRN (22:02)
[2017-10-02] MEDS: Dexamethasone 4 MG TAB PO SCH ×5 (00:26→23:41)
[2017-10-02] MEDS: Senokot S 8.6-50 MG TAB PO SCH ×2 (08:41→20:26)
[2017-10-02] MEDS: Aspirin 81 mg Enteric Coated Tablet PO SCH (08:41)
[2017-10-02] MEDS: Metoprolol Tartrate 25 MG TAB PO SCH ×2 (08:42→20:26)
[2017-10-02] MEDS: levETIRAcetam 500 MG TAB PO SCH ×2 (08:42→20:26)
[2017-10-02] MEDS: Atorvastatin Calcium 10 MG TAB PO SCH (08:42)
[2017-10-02] MEDS: Polyethylene Glycol 3350 17 GM Packet PO SCH (08:42)
[2017-10-02] MEDS: Mirtazapine 15 MG TAB PO SCH (20:26)
[2017-10-02] MEDS: Famotidine 20 MG TAB PO SCH (20:26)
--- NOTE | 2017-10-02 22:50 | PDOC.PN ---
- Subjective Encounter Start Date: 10/02/17 Encounter Start Time: 13:30 Patient seen and examined. No new complaints. No overnight events. Feels gen weak - Objective Resuscitation Status: Resuscitation Status FULL:Full Resuscitation MAR Reviewed: Yes Vital Signs & Weight: Vital Signs (12 hours) Temp Pulse Resp BP Pulse Ox 10/02/17 20:00 97.9 F 86 16 97 10/02/17 19:39 97.9 F 86 16 113/59 L 97 10/02/17 19:26 87 20 93 L 10/02/17 16:05 98.2 F 99 16 91/51 L 93 L 10/02/17 14:18 79 18 94 L 10/02/17 11:15 97.9 F 89 18 99/56 L 93 L Weight Admit Weight 100 lb Weight 100 lb I&O: 10/01/17 10/02/17 10/03/17 06:59 06:59 06:59 Intake Total 220 930 Balance 220 930 Result Diagrams: 09/30/17 05:34 09/30/17 05:34 Phys Exam - Physical Examination Constitutional: NAD Respiratory: no wheezing, no rhonchi Cardiovascular: RRR, no rub Gastrointestinal: soft, non-tender, positive bowel sounds Musculoskeletal: no edema Neurological: moves all 4 limbs Dx/Plan - Plan DVT proph w/SCDs IMPRESSION: 1. Metastatic brain lesions/Small cell lung Ca - on Decadron/Keppra/Radiation treatment 2. NSVT - on betablockers, EF normal 3. COPD exacerbation - improved 4. HTN 5. CAD / HLD / PAD - on ASA(No Plavix per Oncology) PLAN: * Cont Radiation per Oncology * Cont current meds as below including Metoprolol * Oncology/Pulm/Rad oncology/NSG following * DC planning * DC home if able to ambulate in AM Review of Systems - Review of Systems Respiratory: negative: Cough, Dry, Shortness of Breath, Hemoptysis, SOB with Excertion, Pleuritic Pain, Sputum, Wheezing Cardiovascular: negative: chest pain, palpitations, orthopnea, paroxysmal nocturnal dyspnea, edema, light headedness, other - Medications/Allergies Allergies/Adverse Reactions: Allergies Allergy/AdvReac Type Severity Reaction Status Date / Time clindamycin Allergy Hives Verified 09/24/17 00:44 Medications: Current Medications Acetaminophen (Tylenol) 650 mg PO Q4H PRN PRN Reason: Headache/Fever or Pain Al Hydroxide/Mg Hydroxide (Maalox) 30 ml PO Q6H PRN PRN Reason: Heartburn or Indigestion Last Admin: 10/02/17 09:37 Dose: 30 ml Albuterol/Ipratropium (Duoneb) 3 ml NEB [id number] [facility] Last Admin: 10/02/17 19:26 Dose: 3 ml Aspirin (Ecotrin) 81 mg PO DAILY [facility] Last Admin: 10/02/17 08:41 Dose: 81 mg Atorvastatin Calcium (Lipitor) 10 mg PO DAILY [facility] Last Admin: 10/02/17 08:42 Dose: 10 mg Bisacodyl (Dulcolax) 10 mg PO DAILYPRN PRN PRN Reason: Constipation Last Admin: 10/01/17 22:02 Dose: 10 mg Bisacodyl (Dulcolax) 10 mg [place] DAILYPRN PRN PRN Reason: Constipation Last Admin: 09/29/17 17:35 Dose: 10 mg Calcium Carbonate (Tums) 1,000 mg PO Q4H PRN PRN Reason: Heartburn or Indigestion Dexamethasone (Decadron) 4 mg PO Q6HR [facility] Last Admin: 10/02/17 18:05 Dose: 4 mg Famotidine (Pepcid) 20 mg PO 2100 [facility] Last Admin: 10/02/17 20:26 Dose: 20 mg Hydralazine HCl (Apresoline) 10 mg SLOW IVP Q4H PRN PRN Reason: SBP Greater Than 180 Levetiracetam (Keppra) 500 mg PO BID [facility] Last Admin: 10/02/17 20:26 Dose: 500 mg Metoprolol Tartrate (Lopressor) 25 mg PO BID [facility] Last Admin: 10/02/17 20:26 Dose: 25 mg Mirtazapine (Remeron) 15 mg PO HS [facility] Last Admin: 10/02/17 20:26 Dose: 15 mg Nitroglycerin (Nitrostat) 0.4 mg PO Q5MIN PRN PRN Reason: Chest Pain Polyethylene Glycol (Miralax) 17 gm PO DAILY [facility] Last Admin: 10/02/17 08:42 Dose: 17 gm Senna/Docusate Sodium (Senokot S) 2 tab PO BID [facility] Last Admin: 10/02/17 20:26 Dose: 2 tab
[2017-10-03] MEDS: Dexamethasone 4 MG TAB PO SCH ×3 (06:21→17:28)
[2017-10-03] MEDS: Senokot S 8.6-50 MG TAB PO SCH ×2 (08:38→21:38)
[2017-10-03] MEDS: Polyethylene Glycol 3350 17 GM Packet PO SCH (08:38)
[2017-10-03] MEDS: Metoprolol Tartrate 25 MG TAB PO SCH ×2 (08:39→21:38)
[2017-10-03] MEDS: levETIRAcetam 500 MG TAB PO SCH ×2 (08:39→21:38)
[2017-10-03] MEDS: Aspirin 81 mg Enteric Coated Tablet PO SCH (08:39)
[2017-10-03] MEDS: Atorvastatin Calcium 10 MG TAB PO SCH (08:39)
--- NOTE | 2017-10-03 10:58 | PDOC.PN ---
- Subjective Encounter Start Date: 10/03/17 Encounter Start Time: 10:45 Subjective: awake, feels better -: has ambulated well this morning -: right side weakness is better now - Objective Resuscitation Status: Resuscitation Status FULL:Full Resuscitation MAR Reviewed: Yes Vital Signs & Weight: Vital Signs (12 hours) Temp Pulse Resp BP Pulse Ox 10/03/17 06:49 98.1 F 91 16 109/56 L 98 10/03/17 06:22 88 18 91 L 10/03/17 00:11 78 18 94 L Weight Admit Weight 100 lb Weight 100 lb I&O: 10/02/17 10/03/17 10/04/17 06:59 06:59 06:59 Intake Total 930 540 Balance 930 540 Result Diagrams: 09/30/17 05:34 09/30/17 05:34 Phys Exam - Physical Examination HEENT: PERRLA, moist MMs Neck: no JVD, supple Respiratory: no wheezing, no rales Cardiovascular: RRR, no significant murmur Gastrointestinal: soft, non-tender, positive bowel sounds Musculoskeletal: no edema, pulses present very mild right hemiparesis, no trouble with vision Psychiatric: A&O x 3 Dx/Plan (1) Small cell lung cancer in adult Code(s): C34.90 - MALIGNANT NEOPLASM OF UNSP PART OF UNSP BRONCHUS OR LUNG Status: Acute (2) Brain metastases Code(s): C79.31 - SECONDARY MALIGNANT NEOPLASM OF BRAIN Status: Acute Comment: from small cell lung cancer (3) COPD (chronic obstructive pulmonary disease) Status: Chronic Qualifiers: COPD type: chronic bronchitis (4) HTN (hypertension) Code(s): I10 - ESSENTIAL (PRIMARY) HYPERTENSION Status: Chronic Qualifiers: Hypertension type: essential hypertension Qualified Code(s): I10 - Essential (primary) hypertension (5) PVD (peripheral vascular disease) Code(s): I73.9 - PERIPHERAL VASCULAR DISEASE, UNSPECIFIED Status: Chronic (6) Dyslipidemia Code(s): E78.5 - HYPERLIPIDEMIA, UNSPECIFIED Status: Chronic - Plan is on decadron and keppra -: radiation therapy for brain mets day 5 -: asp, lipitor, lopressor, nebs -: her right hemiparesis has improved with radiation and decadron -: d/w and patient at bedside * . Review of Systems - Medications/Allergies Allergies/Adverse Reactions: Allergies Allergy/AdvReac Type Severity Reaction Status Date / Time clindamycin Allergy Hives Verified 09/24/17 00:44 Medications: Current Medications Acetaminophen (Tylenol) 650 mg PO Q4H PRN PRN Reason: Headache/Fever or Pain Al Hydroxide/Mg Hydroxide (Maalox) 30 ml PO Q6H PRN PRN Reason: Heartburn or Indigestion Last Admin: 10/02/17 09:37 Dose: 30 ml Albuterol/Ipratropium (Duoneb) 3 ml NEB [id number] [facility] Last Admin: 10/03/17 06:22 Dose: 3 ml Aspirin (Ecotrin) 81 mg PO DAILY [facility] Last Admin: 10/03/17 08:39 Dose: Not Given Atorvastatin Calcium (Lipitor) 10 mg PO DAILY [facility] Last Admin: 10/03/17 08:39 Dose: 10 mg Bisacodyl (Dulcolax) 10 mg PO DAILYPRN PRN PRN Reason: Constipation Last Admin: 10/01/17 22:02 Dose: 10 mg Bisacodyl (Dulcolax) 10 mg [place] DAILYPRN PRN PRN Reason: Constipation Last Admin: 09/29/17 17:35 Dose: 10 mg Calcium Carbonate (Tums) 1,000 mg PO Q4H PRN PRN Reason: Heartburn or Indigestion Dexamethasone (Decadron) 4 mg PO Q6HR [facility] Last Admin: 10/03/17 06:21 Dose: 4 mg Famotidine (Pepcid) 20 mg PO 2100 [facility] Last Admin: 10/02/17 20:26 Dose: 20 mg Hydralazine HCl (Apresoline) 10 mg SLOW IVP Q4H PRN PRN Reason: SBP Greater Than 180 Levetiracetam (Keppra) 500 mg PO BID [facility] Last Admin: 10/03/17 08:39 Dose: 500 mg Metoprolol Tartrate (Lopressor) 25 mg PO BID [facility] Last Admin: 10/03/17 08:39 Dose: 25 mg Mirtazapine (Remeron) 15 mg PO HS [facility] Last Admin: 10/02/17 20:26 Dose: 15 mg Nitroglycerin (Nitrostat) 0.4 mg PO Q5MIN PRN PRN Reason: Chest Pain Polyethylene Glycol (Miralax) 17 gm PO DAILY [facility] Last Admin: 10/03/17 08:38 Dose: 17 gm Senna/Docusate Sodium (Senokot S) 2 tab PO BID [facility] Last Admin: 10/03/17 08:38 Dose: 2 tab
[2017-10-03] MEDS: Mirtazapine 15 MG TAB PO SCH (21:38)
[2017-10-03] MEDS: Famotidine 20 MG TAB PO SCH (21:38)
[2017-10-04] MEDS: Dexamethasone 4 MG TAB PO SCH ×4 (00:28→17:31)
[2017-10-04] MEDS: Polyethylene Glycol 3350 17 GM Packet PO SCH (09:13)
[2017-10-04] MEDS: Senokot S 8.6-50 MG TAB PO SCH ×2 (09:14→21:22)
[2017-10-04] MEDS: Atorvastatin Calcium 10 MG TAB PO SCH (09:15)
[2017-10-04] MEDS: Metoprolol Tartrate 25 MG TAB PO SCH ×2 (09:15→21:22)
[2017-10-04] MEDS: levETIRAcetam 500 MG TAB PO SCH ×2 (09:15→21:22)
[2017-10-04] MEDS: Aspirin 81 mg Enteric Coated Tablet PO SCH (09:23)
--- NOTE | 2017-10-04 15:19 | PDOC.PN ---
- Subjective Encounter Start Date: 10/04/17 Encounter Start Time: 13:20 Subjective: no sob, feels better - Objective Resuscitation Status: Resuscitation Status FULL:Full Resuscitation MAR Reviewed: Yes Vital Signs & Weight: Vital Signs (12 hours) Temp Pulse Resp BP Pulse Ox 10/04/17 13:31 82 16 96 10/04/17 08:00 98.2 F 75 18 125/60 96 10/04/17 06:46 71 16 96 Weight Admit Weight 100 lb Weight 100 lb I&O: 10/03/17 10/04/17 10/05/17 06:59 06:59 06:59 Intake Total 540 700 Balance 540 700 Result Diagrams: 09/30/17 05:34 09/30/17 05:34 Phys Exam - Physical Examination HEENT: PERRLA, sclera anicteric Neck: no JVD, supple Respiratory: no wheezing, no rales Cardiovascular: RRR, no significant murmur Gastrointestinal: soft, non-tender, no distention, positive bowel sounds Musculoskeletal: no edema, pulses present Neurological: moves all 4 limbs mild right hemiparesis Dx/Plan (1) Small cell lung cancer in adult Code(s): C34.90 - MALIGNANT NEOPLASM OF UNSP PART OF UNSP BRONCHUS OR LUNG Status: Acute (2) Brain metastases Code(s): C79.31 - SECONDARY MALIGNANT NEOPLASM OF BRAIN Status: Acute Comment: from small cell lung cancer (3) COPD (chronic obstructive pulmonary disease) Status: Chronic Qualifiers: COPD type: chronic bronchitis (4) HTN (hypertension) Code(s): I10 - ESSENTIAL (PRIMARY) HYPERTENSION Status: Chronic Qualifiers: Hypertension type: essential hypertension Qualified Code(s): I10 - Essential (primary) hypertension (5) PVD (peripheral vascular disease) Code(s): I73.9 - PERIPHERAL VASCULAR DISEASE, UNSPECIFIED Status: Chronic (6) Dyslipidemia Code(s): E78.5 - HYPERLIPIDEMIA, UNSPECIFIED Status: Chronic - Plan is on radiation therapy day 6 (of 10) -: hemostable -: is participating and working well with PT -: most of her right hemiparesis is resolved -: decadron, keppra, asp, lipitor and lopressor, nebs prn * . Review of Systems - Medications/Allergies Allergies/Adverse Reactions: Allergies Allergy/AdvReac Type Severity Reaction Status Date / Time clindamycin Allergy Hives Verified 09/24/17 00:44 Medications: Current Medications Acetaminophen (Tylenol) 650 mg PO Q4H PRN PRN Reason: Headache/Fever or Pain Last Admin: 10/04/17 00:28 Dose: 650 mg Al Hydroxide/Mg Hydroxide (Maalox) 30 ml PO Q6H PRN PRN Reason: Heartburn or Indigestion Last Admin: 10/02/17 09:37 Dose: 30 ml Albuterol/Ipratropium (Duoneb) 3 ml NEB [id number] [facility] Last Admin: 10/04/17 13:31 Dose: 3 ml Aspirin (Ecotrin) 81 mg PO DAILY [facility] Last Admin: 10/04/17 09:23 Dose: 81 mg Atorvastatin Calcium (Lipitor) 10 mg PO DAILY [facility] Last Admin: 10/04/17 09:15 Dose: 10 mg Bisacodyl (Dulcolax) 10 mg PO DAILYPRN PRN PRN Reason: Constipation Last Admin: 10/01/17 22:02 Dose: 10 mg Bisacodyl (Dulcolax) 10 mg [place] DAILYPRN PRN PRN Reason: Constipation Last Admin: 09/29/17 17:35 Dose: 10 mg Calcium Carbonate (Tums) 1,000 mg PO Q4H PRN PRN Reason: Heartburn or Indigestion Dexamethasone (Decadron) 4 mg PO Q6HR [facility] Last Admin: 10/04/17 12:57 Dose: 4 mg Famotidine (Pepcid) 20 mg PO 2100 [facility] Last Admin: 10/03/17 21:38 Dose: 20 mg Hydralazine HCl (Apresoline) 10 mg SLOW IVP Q4H PRN PRN Reason: SBP Greater Than 180 Levetiracetam (Keppra) 500 mg PO BID [facility] Last Admin: 10/04/17 09:15 Dose: 500 mg Metoprolol Tartrate (Lopressor) 25 mg PO BID [facility] Last Admin: 10/04/17 09:15 Dose: 25 mg Mirtazapine (Remeron) 15 mg PO HS [facility] Last Admin: 10/03/17 21:38 Dose: 15 mg Nitroglycerin (Nitrostat) 0.4 mg PO Q5MIN PRN PRN Reason: Chest Pain Polyethylene Glycol (Miralax) 17 gm PO DAILY [facility] Last Admin: 10/04/17 09:13 Dose: 17 gm Senna/Docusate Sodium (Senokot S) 2 tab PO BID [facility] Last Admin: 10/04/17 09:14 Dose: 2 tab
[2017-10-04] MEDS: Famotidine 20 MG TAB PO SCH (21:22)
[2017-10-04] MEDS: Mirtazapine 15 MG TAB PO SCH (21:22)
[2017-10-05] MEDS: Dexamethasone 4 MG TAB PO SCH ×5 (03:48→21:36)
[2017-10-05] MEDS: Senokot S 8.6-50 MG TAB PO SCH ×2 (08:54→21:36)
[2017-10-05] MEDS: Atorvastatin Calcium 10 MG TAB PO SCH (08:54)
[2017-10-05] MEDS: Aspirin 81 mg Enteric Coated Tablet PO SCH (08:54)
[2017-10-05] MEDS: levETIRAcetam 500 MG TAB PO SCH ×2 (08:54→21:35)
[2017-10-05] MEDS: Metoprolol Tartrate 25 MG TAB PO SCH ×2 (08:55→21:37)
[2017-10-05] MEDS: Polyethylene Glycol 3350 17 GM Packet PO SCH (08:55)
--- NOTE | 2017-10-05 19:36 | PDOC.PN ---
- Subjective Encounter Start Date: 10/05/17 Encounter Start Time: 19:25 Subjective: f/u for metastatic small cell lung CA to the brain receiving XRT 7 out 10 -: scheduled treatments. Feeling much better, thinking clearer, more active. - Objective Resuscitation Status: Resuscitation Status FULL:Full Resuscitation MAR Reviewed: Yes Vital Signs & Weight: Vital Signs (12 hours) Temp Pulse Resp BP Pulse Ox 10/05/17 18:18 76 16 95 10/05/17 13:56 80 16 10/05/17 08:00 98.2 F 77 20 114/64 96 Weight Admit Weight 100 lb Weight 100 lb I&O: 10/04/17 10/05/17 10/06/17 06:59 06:59 06:59 Intake Total 700 820 480 Balance 700 820 480 Result Diagrams: 09/30/17 05:34 09/30/17 05:34 Radiology Reviewed by me: Yes (2D echo - EF 55-60%) Phys Exam - Physical Examination Constitutional: NAD alert, responsive, smiling HEENT: PERRLA, oral pharynx no lesions Neck: no JVD, supple Respiratory: no wheezing, clear to auscultation bilateral Cardiovascular: RRR Gastrointestinal: soft, non-tender, no distention, positive bowel sounds Musculoskeletal: no edema, pulses present Neurological: normal sensation, moves all 4 limbs Psychiatric: A&O x 3 Skin: normal turgor, cap refill <2 seconds Dx/Plan (1) Brain metastases Code(s): C79.31 - SECONDARY MALIGNANT NEOPLASM OF BRAIN Status: Acute Comment: from small cell lung cancer, XRT currently day 7 out 10 doses, plan for SNF after completion, continue Dexamethasone 4mg q6h, continue Keppra 500mg BID (2) Small cell lung cancer, overlapping sites of right lung Code(s): C34.81 - MALIGNANT NEOPLASM OF OVRLP SITES OF RIGHT BRONCHUS AND LUNG Status: Acute Comment: Chemotx planned after completion of XRT (3) COPD (chronic obstructive pulmonary disease) Status: Chronic Qualifiers: COPD type: chronic bronchitis Comment: Continue Duonebs q6h prn (4) HTN (hypertension) Code(s): I10 - ESSENTIAL (PRIMARY) HYPERTENSION Status: Chronic Qualifiers: Hypertension type: essential hypertension Qualified Code(s): I10 - Essential (primary) hypertension Comment: Continue Metoprolol 25mg BID (5) PVD (peripheral vascular disease) Code(s): I73.9 - PERIPHERAL VASCULAR DISEASE, UNSPECIFIED Status: Chronic Comment: ASA, Lipitor - Plan 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
[2017-10-05] MEDS: Famotidine 20 MG TAB PO SCH (21:35)
[2017-10-05] MEDS: Mirtazapine 15 MG TAB PO SCH (21:37)
[2017-10-06] MEDS: Dexamethasone 4 MG TAB PO SCH ×4 (04:35→21:43)
[2017-10-06] MEDS: levETIRAcetam 500 MG TAB PO SCH ×2 (08:43→21:43)
[2017-10-06] MEDS: Senokot S 8.6-50 MG TAB PO SCH ×2 (08:43→21:43)
[2017-10-06] MEDS: Aspirin 81 mg Enteric Coated Tablet PO SCH (08:43)
[2017-10-06] MEDS: Atorvastatin Calcium 10 MG TAB PO SCH (08:43)
[2017-10-06] MEDS: Polyethylene Glycol 3350 17 GM Packet PO SCH (08:44)
[2017-10-06] MEDS: Metoprolol Tartrate 25 MG TAB PO SCH ×2 (08:44→21:45)
--- NOTE | 2017-10-06 13:47 | PDOC.PN ---
- Subjective Encounter Start Date: 10/06/17 Encounter Start Time: 12:00 Patient is nelly along with at bedside, No concenr snoted. No nausea or Vomiting. No chest pain. - Objective Resuscitation Status: Resuscitation Status FULL:Full Resuscitation MAR Reviewed: Yes Vital Signs & Weight: Vital Signs (12 hours) Temp Pulse Resp BP Pulse Ox 10/06/17 12:38 64 12 10/06/17 11:46 96 10/06/17 08:00 97.7 F 69 16 106/55 L 96 10/06/17 06:19 76 12 Weight Admit Weight 100 lb Weight 100 lb I&O: 10/05/17 10/06/17 10/07/17 06:59 06:59 06:59 Intake Total 820 1220 Balance 820 1220 Result Diagrams: 09/30/17 05:34 09/30/17 05:34 Phys Exam - Physical Examination HEENT: PERRLA, moist MMs Neck: no nodes, no JVD Respiratory: no wheezing, no rales Cardiovascular: RRR, no significant murmur Gastrointestinal: soft, non-tender Musculoskeletal: no edema, pulses present Neurological: non-focal, normal sensation Psychiatric: normal affect, A&O x 3 Dx/Plan (1) Brain metastases Code(s): C79.31 - SECONDARY MALIGNANT NEOPLASM OF BRAIN Status: Acute Comment: from small cell lung cancer, XRT currently day 7 out 10 doses, next Radiation therapy on sunday, plan for SNF after completion, continue Dexamethasone 4mg q6h, continue Keppra 500mg BID (2) Small cell lung cancer in adult Code(s): C34.90 - MALIGNANT NEOPLASM OF UNSP PART OF UNSP BRONCHUS OR LUNG Status: Acute (3) Small cell lung cancer, overlapping sites of right lung Code(s): C34.81 - MALIGNANT NEOPLASM OF OVRLP SITES OF RIGHT BRONCHUS AND LUNG Status: Acute Comment: Chemotx planned after completion of XRT (4) COPD (chronic obstructive pulmonary disease) Status: Chronic Qualifiers: COPD type: chronic bronchitis Comment: Continue Duonebs q6h prn (5) Dyslipidemia Code(s): E78.5 - HYPERLIPIDEMIA, UNSPECIFIED Status: Chronic (6) HTN (hypertension) Code(s): I10 - ESSENTIAL (PRIMARY) HYPERTENSION Status: Chronic Qualifiers: Hypertension type: essential hypertension Qualified Code(s): I10 - Essential (primary) hypertension Comment: Continue Metoprolol 25mg BID (7) PVD (peripheral vascular disease) Code(s): I73.9 - PERIPHERAL VASCULAR DISEASE, UNSPECIFIED Status: Chronic Comment: ASA, Lipitor - Plan cont current plan of care, respiratory therapy, incentive spirometry, out of bed /ambulate, DVT proph w/lovenox * . - Discharge Day Encounter end time: 12:35 Review of Systems - Review of Systems Constitutional: negative: fever, chills, sweats, weakness, malaise, other Eyes: negative: Pain, Vision Change, Conjunctivae Inflammation, Eyelid Inflammation, Redness, Other ENT: negative: Ear Pain, Ear Discharge, Nose Pain, Nose Discharge, Nose Congestion, Mouth Pain, Mouth Swelling, Throat Pain, Throat Swelling, Other Respiratory: negative: Cough, Dry, Shortness of Breath, Hemoptysis, SOB with Excertion, Pleuritic Pain, Sputum, Wheezing Cardiovascular: negative: chest pain, palpitations, orthopnea, paroxysmal nocturnal dyspnea, edema, light headedness, other Gastrointestinal: negative: Nausea, Vomiting, Abdominal Pain, Diarrhea, Constipation, Melena, Hematochezia, Other Musculoskeletal: negative: Neck Pain, Shoulder Pain, Arm Pain, Back Pain, Hand Pain, Leg Pain, Foot Pain, Other Skin: negative: Rash, Lesions, Niko, Bruising, Other Neurological: negative: Weakness, Numbness, Incoordination, Change in Speech, Confusion, Seizures, Other - Medications/Allergies Allergies/Adverse Reactions: Allergies Allergy/AdvReac Type Severity Reaction Status Date / Time clindamycin Allergy Hives Verified 09/24/17 00:44 Medications: Current Medications Acetaminophen (Tylenol) 650 mg PO Q4H PRN PRN Reason: Headache/Fever or Pain Last Admin: 10/04/17 00:28 Dose: 650 mg Al Hydroxide/Mg Hydroxide (Maalox) 30 ml PO Q6H PRN PRN Reason: Heartburn or Indigestion Last Admin: 10/02/17 09:37 Dose: 30 ml Albuterol/Ipratropium (Duoneb) 3 ml NEB [id number] [facility] Last Admin: 10/06/17 12:38 Dose: 3 ml Aspirin (Ecotrin) 81 mg PO DAILY [facility] Last Admin: 10/06/17 08:43 Dose: 81 mg Atorvastatin Calcium (Lipitor) 10 mg PO DAILY [facility] Last Admin: 10/06/17 08:43 Dose: 10 mg Bisacodyl (Dulcolax) 10 mg PO DAILYPRN PRN PRN Reason: Constipation Last Admin: 10/01/17 22:02 Dose: 10 mg Bisacodyl (Dulcolax) 10 mg [place] DAILYPRN PRN PRN Reason: Constipation Last Admin: 09/29/17 17:35 Dose: 10 mg Calcium Carbonate (Tums) 1,000 mg PO Q4H PRN PRN Reason: Heartburn or Indigestion Dexamethasone (Decadron) 4 mg PO 0400,1000,1600,2200 [facility] Last Admin: 10/06/17 11:23 Dose: 4 mg Famotidine (Pepcid) 20 mg PO 2100 [facility] Last Admin: 10/05/17 21:35 Dose: 20 mg Hydralazine HCl (Apresoline) 10 mg SLOW IVP Q4H PRN PRN Reason: SBP Greater Than 180 Levetiracetam (Keppra) 500 mg PO BID [facility] Last Admin: 10/06/17 08:43 Dose: 500 mg Metoprolol Tartrate (Lopressor) 25 mg PO BID [facility] Last Admin: 10/06/17 08:44 Dose: 25 mg Mirtazapine (Remeron) 15 mg PO HS [facility] Last Admin: 10/05/17 21:37 Dose: 15 mg Nitroglycerin (Nitrostat) 0.4 mg PO Q5MIN PRN PRN Reason: Chest Pain Polyethylene Glycol (Miralax) 17 gm PO DAILY [facility] Last Admin: 10/06/17 08:44 Dose: 17 gm Senna/Docusate Sodium (Senokot S) 2 tab PO BID [facility] Last Admin: 10/06/17 08:43 Dose: 2 tab
--- NOTE | 2017-10-06 21:34 | EKG ---
Test Reason : Blood Pressure : / mmHG Vent. Rate : 078 BPM Atrial Rate : 078 BPM P-R Int : 160 ms QRS Dur : 114 ms QT Int : 440 ms P-R-T Axes : 076 -18 080 degrees QTc Int : 501 ms Normal sinus rhythm Possible Anterior infarct , age undetermined Abnormal ECG Confirmed by DAVID MENEZES M.D. ([id number]), news videotape editor AGNES BAILEY ([id number]) on 10/06/2017 9:34:37 PM Referred By: Confirmed By:DAVID MENEZES M.D.
[2017-10-06] MEDS: Mirtazapine 15 MG TAB PO SCH (21:44)
[2017-10-06] MEDS: Famotidine 20 MG TAB PO SCH (21:44)
[2017-10-07] MEDS: Dexamethasone 4 MG TAB PO SCH ×4 (05:54→21:23)
[2017-10-07] MEDS: Senokot S 8.6-50 MG TAB PO SCH ×2 (09:58→21:23)
[2017-10-07] MEDS: Metoprolol Tartrate 25 MG TAB PO SCH ×2 (09:58→21:28)
[2017-10-07] MEDS: Atorvastatin Calcium 10 MG TAB PO SCH (09:58)
[2017-10-07] MEDS: levETIRAcetam 500 MG TAB PO SCH ×2 (09:58→21:23)
[2017-10-07] MEDS: Polyethylene Glycol 3350 17 GM Packet PO SCH (09:58)
[2017-10-07] MEDS: Aspirin 81 mg Enteric Coated Tablet PO SCH (09:58)
--- NOTE | 2017-10-07 14:48 | PDOC.PN ---
- Subjective Encounter Start Date: 10/07/17 Encounter Start Time: 14:00 Patient is alert but confused, says she did not pass urine since 4 days. No nausea or vomiting. - Objective Resuscitation Status: Resuscitation Status FULL:Full Resuscitation MAR Reviewed: Yes Vital Signs & Weight: Vital Signs (12 hours) Temp Pulse Resp BP Pulse Ox 10/07/17 14:06 70 16 10/07/17 10:02 72 16 10/07/17 08:00 97.6 F 72 16 110/57 L 94 L Weight Admit Weight 100 lb Weight 100 lb I&O: 10/06/17 10/07/17 10/08/17 06:59 06:59 06:59 Intake Total 1220 950 Output Total 300 Balance 1220 650 Result Diagrams: 09/30/17 05:34 09/30/17 05:34 Phys Exam - Physical Examination HEENT: PERRLA, moist MMs Neck: no nodes, no JVD Respiratory: no wheezing, no rales Cardiovascular: RRR, no significant murmur Gastrointestinal: soft, non-tender Musculoskeletal: no edema Psychiatric: normal affect, A&O x 3 Skin: no rash, normal turgor Dx/Plan (1) Brain metastases Code(s): C79.31 - SECONDARY MALIGNANT NEOPLASM OF BRAIN Status: Acute Comment: from small cell lung cancer, XRT currently day 7 out 10 doses, next Radiation therapy on sunday, plan for SNF after completion, continue Dexamethasone 4mg q6h, continue Keppra 500mg BID (2) Small cell lung cancer in adult Code(s): C34.90 - MALIGNANT NEOPLASM OF UNSP PART OF UNSP BRONCHUS OR LUNG Status: Acute (3) Small cell lung cancer, overlapping sites of right lung Code(s): C34.81 - MALIGNANT NEOPLASM OF OVRLP SITES OF RIGHT BRONCHUS AND LUNG Status: Acute Comment: Chemotx planned after completion of XRT (4) COPD (chronic obstructive pulmonary disease) Status: Chronic Qualifiers: COPD type: chronic bronchitis Comment: Continue Duonebs q6h prn (5) Dyslipidemia Code(s): E78.5 - HYPERLIPIDEMIA, UNSPECIFIED Status: Chronic (6) HTN (hypertension) Code(s): I10 - ESSENTIAL (PRIMARY) HYPERTENSION Status: Chronic Qualifiers: Hypertension type: essential hypertension Qualified Code(s): I10 - Essential (primary) hypertension Comment: Continue Metoprolol 25mg BID (7) PVD (peripheral vascular disease) Code(s): I73.9 - PERIPHERAL VASCULAR DISEASE, UNSPECIFIED Status: Chronic Comment: ASA, Lipitor (8) Acute encephalopathy Code(s): G93.40 - ENCEPHALOPATHY, UNSPECIFIED Status: Acute Comment: Will look for UTi, or could be related to Radiation therapy. pt is Alert though. - Plan cont current plan of care, PT/OT, pharmacy services director, incentive spirometry, DVT proph w/SCDs * . - Discharge Day Encounter end time: 14:35 Review of Systems - Review of Systems ENT: negative: Ear Pain, Ear Discharge, Nose Pain, Nose Discharge, Nose Congestion, Mouth Pain, Mouth Swelling, Throat Pain, Throat Swelling, Other Respiratory: negative: Cough, Dry, Shortness of Breath, Hemoptysis, SOB with Excertion, Pleuritic Pain, Sputum, Wheezing Cardiovascular: negative: chest pain, palpitations, orthopnea, paroxysmal nocturnal dyspnea, edema, light headedness, other Gastrointestinal: negative: Nausea, Vomiting, Abdominal Pain, Diarrhea, Constipation, Melena, Hematochezia, Other Genitourinary: Retention. negative: Dysuria, Frequency, Incontinence, Hematuria , Other Musculoskeletal: negative: Neck Pain, Shoulder Pain, Arm Pain, Back Pain, Hand Pain, Leg Pain, Foot Pain, Other - Medications/Allergies Allergies/Adverse Reactions: Allergies Allergy/AdvReac Type Severity Reaction Status Date / Time clindamycin Allergy Hives Verified 09/24/17 00:44 Medications: Current Medications Acetaminophen (Tylenol) 650 mg PO Q4H PRN PRN Reason: Headache/Fever or Pain Last Admin: 10/04/17 00:28 Dose: 650 mg Al Hydroxide/Mg Hydroxide (Maalox) 30 ml PO Q6H PRN PRN Reason: Heartburn or Indigestion Last Admin: 10/02/17 09:37 Dose: 30 ml Albuterol/Ipratropium (Duoneb) 3 ml NEB [id number] [facility] Last Admin: 10/07/17 14:06 Dose: 3 ml Aspirin (Ecotrin) 81 mg PO DAILY [facility] Last Admin: 10/07/17 09:58 Dose: 81 mg Atorvastatin Calcium (Lipitor) 10 mg PO DAILY [facility] Last Admin: 10/07/17 09:58 Dose: 10 mg Bisacodyl (Dulcolax) 10 mg PO DAILYPRN PRN PRN Reason: Constipation Last Admin: 10/01/17 22:02 Dose: 10 mg Bisacodyl (Dulcolax) 10 mg [place] DAILYPRN PRN PRN Reason: Constipation Last Admin: 09/29/17 17:35 Dose: 10 mg Calcium Carbonate (Tums) 1,000 mg PO Q4H PRN PRN Reason: Heartburn or Indigestion Dexamethasone (Decadron) 4 mg PO 0400,1000,1600,2200 [facility] Last Admin: 10/07/17 10:38 Dose: 4 mg Famotidine (Pepcid) 20 mg PO 2100 [facility] Last Admin: 10/06/17 21:44 Dose: 20 mg Hydralazine HCl (Apresoline) 10 mg SLOW IVP Q4H PRN PRN Reason: SBP Greater Than 180 Levetiracetam (Keppra) 500 mg PO BID [facility] Last Admin: 10/07/17 09:58 Dose: 500 mg Metoprolol Tartrate (Lopressor) 25 mg PO BID [facility] Last Admin: 10/07/17 09:58 Dose: Not Given Mirtazapine (Remeron) 15 mg PO HS [facility] Last Admin: 10/06/17 21:44 Dose: 15 mg Nitroglycerin (Nitrostat) 0.4 mg PO Q5MIN PRN PRN Reason: Chest Pain Polyethylene Glycol (Miralax) 17 gm PO DAILY [facility] Last Admin: 10/07/17 09:58 Dose: 17 gm Senna/Docusate Sodium (Senokot S) 2 tab PO BID [facility] Last Admin: 10/07/17 09:58 Dose: 2 tab
[2017-10-07 17:17] LABS: Bilirubin Negative (Negative); Blood, Urine Negative (Negative); Clarity CLEAR (Clear); Glucose, Urine (Dipstick) Negative (Negative); Leukocyte Small (Negative); Nitrite Negative (Negative); Protein, Urine (Dipstick) Negative (Neg-Trace); Specific Gravity, Urine 1.026 (1.002-1.036)
[2017-10-07 17:19] LABS: Bacteria/HPF None Seen HPF (None Seen); Hyaline Casts/LPF 0-3 HYALINE CAST LPF (0-3 Hyaline); Pathc Cast-AUWi Flag 0.72 (0-2.49); RBC/HPF 0-3 HPF (0-3); Squamous Epithelial 0-3 HPF (0-3); WBC/HPF 0-3 HPF (0-3)
[2017-10-07 17:20] LABS: Yeast-AUWi Flag 29.2 (0-25.0)
[2017-10-07 17:30] LABS: Yeast-All Forms None Seen HPF (None Seen)
[2017-10-07] MEDS: Famotidine 20 MG TAB PO SCH (21:23)
[2017-10-07] MEDS: Mirtazapine 15 MG TAB PO SCH (21:23)
[2017-10-08] MEDS: Dexamethasone 4 MG TAB PO SCH ×4 (04:43→22:10)
[2017-10-08] MEDS: Bisacodyl 5 MG TAB PO PRN (04:43)
[2017-10-08 05:19] LABS: #Lymphocytes 0.3 thou/uL (1.20-3.40); #Monocytes 0.6 thou/uL (0.11-0.59); #Neutrophils 14.8 thou/uL (1.40-6.50); %Basophils 0.1 % (0.0-1.0); %Eosinophils 0.3 % (0.0-10.0); %Lymphocytes 1.8 % (21.0-51.0); %Monocytes 3.7 % (0.0-10.0); %Neutrophils 94.3 % (42.0-75.0); Hemoglobin 13.1 g/dL (12.0-16.0); Mean Corpuscular Hemoglobin 32.3 pg (27.0-31.0); Mean Platelet Volume 6.9 fL (7.4-10.4); Platelet Count 142 thou/uL (130-400); RBC Distribution Width 13.5 % (11.5-14.5); Red Blood Cell (RBC) Count 4.06 mill/uL (4.20-5.40); White Blood Cell (WBC) Count 15.7 thou/uL (4.8-10.8)
[2017-10-08 05:38] LABS: Anion Gap 13 mmol/L (10-20); BUN (Urea Nitrogen) 39 mg/dL (9.8-20.1); Calc. Creatinine Clearance 45 mL/min (70-130); Carbon Dioxide 25 mmol/L (23-31); Chloride 103 mmol/L (98-107); Estimated GFR-MDRD 77; Glucose 128 mg/dL (83-110); Potassium 4.7 mmol/L (3.5-5.1); Sodium 136 mmol/L (136-145)
[2017-10-08] MEDS: Atorvastatin Calcium 10 MG TAB PO SCH (09:21)
[2017-10-08] MEDS: Polyethylene Glycol 3350 17 GM Packet PO SCH (09:21)
[2017-10-08] MEDS: levETIRAcetam 500 MG TAB PO SCH ×2 (09:22→22:08)
[2017-10-08] MEDS: Aspirin 81 mg Enteric Coated Tablet PO SCH (09:22)
[2017-10-08] MEDS: Metoprolol Tartrate 25 MG TAB PO SCH ×2 (09:22→22:11)
[2017-10-08] MEDS: Senokot S 8.6-50 MG TAB PO SCH ×2 (09:22→22:10)
--- NOTE | 2017-10-08 11:22 | RAD ---
SINGLE VIEW OF THE CHEST: Comparison: None. History: Abnormal breath sounds, nonproductive cough. FINDINGS: Single view of the chest shows a normal sized cardiomediastinal silhouette with atherosclerotic calci fications in the aorta. There is no evidence of consolidation, mass, or pleural effusion. Degenerativ e changes are seen in the spine. IMPRESSION: No evidence of acute cardiopulmonary disease. POS: [facility]
--- NOTE | 2017-10-08 14:51 | PDOC.PN ---
- Subjective Encounter Start Date: 10/08/17 Encounter Start Time: 11:00 Patient is seen today, alert and oriented. at bedside, pt waiting for her Radiation therapy for brain metastasis which will continue till sunday. Plan is per . - Objective Resuscitation Status: Resuscitation Status FULL:Full Resuscitation MAR Reviewed: Yes Vital Signs & Weight: Vital Signs (12 hours) Temp Pulse Resp BP Pulse Ox 10/08/17 13:21 91 18 98 10/08/17 08:00 98.1 F 94 16 87/53 L 91 L 10/08/17 07:09 86 16 91 L Weight Admit Weight 100 lb Weight 100 lb I&O: 10/07/17 10/08/17 10/09/17 06:59 06:59 06:59 Intake Total 950 640 Output Total 300 Balance 650 640 Result Diagrams: 10/08/17 04:42 10/08/17 04:42 Radiology Reviewed by me: Yes Dx/Plan (1) Brain metastases Code(s): C79.31 - SECONDARY MALIGNANT NEOPLASM OF BRAIN Status: Acute Comment: from small cell lung cancer, XRT currently day 8 out 10 doses, plan for SNF after completion, continue Dexamethasone 4mg q6h, continue Keppra 500mg BID (2) Small cell lung cancer in adult Code(s): C34.90 - MALIGNANT NEOPLASM OF UNSP PART OF UNSP BRONCHUS OR LUNG Status: Acute Comment: Per Dr. Olmos. (3) Small cell lung cancer, overlapping sites of right lung Code(s): C34.81 - MALIGNANT NEOPLASM OF OVRLP SITES OF RIGHT BRONCHUS AND LUNG Status: Acute Comment: Chemotx planned after completion of XRT (4) COPD (chronic obstructive pulmonary disease) Status: Chronic Qualifiers: COPD type: chronic bronchitis Comment: Continue Duonebs q6h prn (5) Dyslipidemia Code(s): E78.5 - HYPERLIPIDEMIA, UNSPECIFIED Status: Chronic (6) HTN (hypertension) Code(s): I10 - ESSENTIAL (PRIMARY) HYPERTENSION Status: Chronic Qualifiers: Hypertension type: essential hypertension Qualified Code(s): I10 - Essential (primary) hypertension Comment: Continue Metoprolol 25mg BID (7) PVD (peripheral vascular disease) Code(s): I73.9 - PERIPHERAL VASCULAR DISEASE, UNSPECIFIED Status: Chronic Comment: ASA, Lipitor (8) Acute encephalopathy Code(s): G93.40 - ENCEPHALOPATHY, UNSPECIFIED Status: Acute Comment: Will look for UTi, or could be related to Radiation therapy. pt is Alert though. - Plan cont current plan of care, respiratory therapy, incentive spirometry, out of bed /ambulate, DVT proph w/lovenox * . - Discharge Day Encounter end time: 11:35 Review of Systems - Review of Systems Eyes: negative: Pain, Vision Change, Conjunctivae Inflammation, Eyelid Inflammation, Redness, Other ENT: negative: Ear Pain, Ear Discharge, Nose Pain, Nose Discharge, Nose Congestion, Mouth Pain, Mouth Swelling, Throat Pain, Throat Swelling, Other Respiratory: negative: Cough, Dry, Shortness of Breath, Hemoptysis, SOB with Excertion, Pleuritic Pain, Sputum, Wheezing Cardiovascular: negative: chest pain, palpitations, orthopnea, paroxysmal nocturnal dyspnea, edema, light headedness, other Gastrointestinal: negative: Nausea, Vomiting, Abdominal Pain, Diarrhea, Constipation, Melena, Hematochezia, Other Musculoskeletal: negative: Neck Pain, Shoulder Pain, Arm Pain, Back Pain, Hand Pain, Leg Pain, Foot Pain, Other Skin: negative: Rash, Lesions, Niko, Bruising, Other - Medications/Allergies Allergies/Adverse Reactions: Allergies Allergy/AdvReac Type Severity Reaction Status Date / Time clindamycin Allergy Hives Verified 09/24/17 00:44 Medications: Current Medications Acetaminophen (Tylenol) 650 mg PO Q4H PRN PRN Reason: Headache/Fever or Pain Last Admin: 10/04/17 00:28 Dose: 650 mg Al Hydroxide/Mg Hydroxide (Maalox) 30 ml PO Q6H PRN PRN Reason: Heartburn or Indigestion Last Admin: 10/02/17 09:37 Dose: 30 ml Albuterol/Ipratropium (Duoneb) 3 ml NEB [id number] [facility] Last Admin: 10/08/17 13:21 Dose: 3 ml Aspirin (Ecotrin) 81 mg PO DAILY [facility] Last Admin: 10/08/17 09:22 Dose: 81 mg Atorvastatin Calcium (Lipitor) 10 mg PO DAILY [facility] Last Admin: 10/08/17 09:21 Dose: 10 mg Bisacodyl (Dulcolax) 10 mg PO DAILYPRN PRN PRN Reason: Constipation Last Admin: 10/08/17 04:43 Dose: 10 mg Bisacodyl (Dulcolax) 10 mg [place] DAILYPRN PRN PRN Reason: Constipation Last Admin: 09/29/17 17:35 Dose: 10 mg Calcium Carbonate (Tums) 1,000 mg PO Q4H PRN PRN Reason: Heartburn or Indigestion Dexamethasone (Decadron) 4 mg PO 0400,1000,1600,2200 [facility] Last Admin: 10/08/17 09:22 Dose: 4 mg Famotidine (Pepcid) 20 mg PO 2100 [facility] Last Admin: 10/07/17 21:23 Dose: 20 mg Hydralazine HCl (Apresoline) 10 mg SLOW IVP Q4H PRN PRN Reason: SBP Greater Than 180 Levetiracetam (Keppra) 500 mg PO BID [facility] Last Admin: 10/08/17 09:22 Dose: 500 mg Metoprolol Tartrate (Lopressor) 25 mg PO BID [facility] Last Admin: 10/08/17 09:22 Dose: Not Given Mirtazapine (Remeron) 15 mg PO HS [facility] Last Admin: 10/07/17 21:23 Dose: 15 mg Nitroglycerin (Nitrostat) 0.4 mg PO Q5MIN PRN PRN Reason: Chest Pain Polyethylene Glycol (Miralax) 17 gm PO DAILY [facility] Last Admin: 10/08/17 09:21 Dose: 17 gm Senna/Docusate Sodium (Senokot S) 2 tab PO BID [facility] Last Admin: 10/08/17 09:22 Dose: 2 tab
[2017-10-08] MEDS: Famotidine 20 MG TAB PO SCH (22:09)
[2017-10-08] MEDS: Mirtazapine 15 MG TAB PO SCH (22:09)
[2017-10-09] MEDS: Dexamethasone 4 MG TAB PO SCH ×4 (04:05→20:43)
[2017-10-09] MEDS: Polyethylene Glycol 3350 17 GM Packet PO SCH (08:08)
[2017-10-09] MEDS: Atorvastatin Calcium 10 MG TAB PO SCH (08:08)
[2017-10-09] MEDS: Metoprolol Tartrate 25 MG TAB PO SCH ×2 (08:09→20:42)
[2017-10-09] MEDS: Aspirin 81 mg Enteric Coated Tablet PO SCH (08:09)
[2017-10-09] MEDS: Senokot S 8.6-50 MG TAB PO SCH ×2 (08:09→20:43)
[2017-10-09] MEDS: levETIRAcetam 500 MG TAB PO SCH ×2 (08:09→20:44)
--- NOTE | 2017-10-09 13:24 | PRG ---
DATE OF SERVICE: 10/09/2017 SUBJECTIVE: Ms. Chase is improved. Her thinking is better and she is feeling stronger. She is ambul ating with the help of physical therapy. She has no headaches or nausea or vomiting. She has no oth er complaints. OBJECTIVE: VITAL SIGNS: Blood pressure 99/58, pulse 77, respirations are 16, temperature is 97.9, O2 saturation is 97%. GENERAL: She is alert and oriented and thinking much clearly and communicating much more clearly. NECK: Supple without cervical or supraclavicular adenopathy. LUNGS: Clear to auscultation and percussion. HEART: Regular rate and rhythm without murmur. ABDOMEN: Soft, nontender, nondistended, without mass or hepatosplenomegaly. Liver percusses to norm al size. NEUROLOGIC: Motor strength in her right lower extremity is much better. It is basically normal at t his time. LABORATORY DATA: CBC yesterday revealed white blood count of 15,700 with hemoglobin of 13.1 and chelsea tocrit of 38.5. Platelet count is 142,000. Chemistry group showed normal electrolytes with the exce ption of her BUN being 39. Creatinine was 0.73. ASSESSMENT: Ms. Chase has had a good palliative response to radiation therapy. Mentally, she is impr juliane and she is ambulating much better. PLAN: I would recommend that we begin to taper her dexamethasone. I will decrease her from 4 times a day to 3 times a day today. I would recommend that the dexamethasone be tapered over the next 3 we eks or so. This of course is depending on how she does clinically. She will finish her radiation th erapy tomorrow. From my perspective, she is suitable for discharge home. 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 They are planning to have her seen in [place] to hopefully initiate her therapy soon. I have recommended that if they get copies of the records and films to take with them for that visit so that it might be somewhat expedited. She finished her radiation therapy tomorrow and I will plan to see her again in about 6 weeks as an outpatient. We can communicate with her and her family by phone to find out how she is tolerating the taper of her dexamethasone.
--- NOTE | 2017-10-09 14:12 | PDOC.PN ---
- Subjective Encounter Start Date: 10/09/17 Encounter Start Time: 14:05 Subjective: f/u for metastatic small cell CA to brain with XRT 9 of 10 tx's. Currently -: doing well with clearer speech and thinking. Ambulates with PT. No new -: complaints. - Objective Resuscitation Status: Resuscitation Status FULL:Full Resuscitation MAR Reviewed: Yes Vital Signs & Weight: Vital Signs (12 hours) Temp Pulse Resp BP Pulse Ox 10/09/17 08:00 97.9 F 77 16 99/58 L 97 10/09/17 07:18 78 16 96 Weight Admit Weight 100 lb Weight 100 lb I&O: 10/08/17 10/09/17 10/10/17 06:59 06:59 06:59 Intake Total 640 1020 Balance 640 1020 Result Diagrams: 10/08/17 04:42 10/08/17 04:42 Radiology Reviewed by me: Yes (PCXR - no acute changes) Phys Exam - Physical Examination Constitutional: NAD HEENT: PERRLA, oral pharynx no lesions Neck: no JVD, supple Respiratory: no wheezing, no rales, no rhonchi, clear to auscultation bilateral Cardiovascular: RRR, no significant murmur Gastrointestinal: soft, non-tender, no distention, positive bowel sounds Musculoskeletal: no edema, pulses present Neurological: normal sensation, moves all 4 limbs Psychiatric: normal affect, A&O x 3 Skin: no rash, normal turgor, cap refill <2 seconds Dx/Plan (1) Brain metastases Code(s): C79.31 - SECONDARY MALIGNANT NEOPLASM OF BRAIN Status: Acute Comment: from small cell lung cancer, XRT currently day 9 out 10 doses, continue Dexamethasone 4mg q8h, continue Keppra 500mg BID (2) Small cell lung cancer, overlapping sites of right lung Code(s): C34.81 - MALIGNANT NEOPLASM OF OVRLP SITES OF RIGHT BRONCHUS AND LUNG Status: Acute Comment: Chemotx planned after completion of XRT (3) COPD (chronic obstructive pulmonary disease) Status: Chronic Qualifiers: COPD type: chronic bronchitis Comment: Continue Duonebs q6h prn (4) HTN (hypertension) Code(s): I10 - ESSENTIAL (PRIMARY) HYPERTENSION Status: Chronic Qualifiers: Hypertension type: essential hypertension Qualified Code(s): I10 - Essential (primary) hypertension Comment: Continue Metoprolol 25mg BID (5) PVD (peripheral vascular disease) Code(s): I73.9 - PERIPHERAL VASCULAR DISEASE, UNSPECIFIED Status: Chronic Comment: ASA, Lipitor - Plan plan discussed w/ family, PT/OT, social worker palliative care, out of bed/ambulate, DVT proph w/SCDs Stable overall -: XRT 9 of 10 doses today -: Chemotx planned as outpt in [place], [place] after d/c -: Continue Dexamethasone 4mg TID -: Keppra 500mg BID * Likely home 10/10/17 after XRT completed
[2017-10-09] MEDS: Famotidine 20 MG TAB PO SCH (20:43)
[2017-10-09] MEDS: Mirtazapine 15 MG TAB PO SCH (20:44)
[2017-10-10 08:19] VITALS: TEMP 98.1
[2017-10-10] MEDS: Atorvastatin Calcium 10 MG TAB PO SCH (09:54)
[2017-10-10] MEDS: Aspirin 81 mg Enteric Coated Tablet PO SCH (09:54)
[2017-10-10] MEDS: Dexamethasone 4 MG TAB PO SCH (09:55)
[2017-10-10] MEDS: levETIRAcetam 500 MG TAB PO SCH (09:55)
[2017-10-10] MEDS: Senokot S 8.6-50 MG TAB PO SCH (09:57)
[2017-10-10] MEDS: Polyethylene Glycol 3350 17 GM Packet PO SCH (09:58)
[2017-10-10] MEDS: Metoprolol Tartrate 25 MG TAB PO SCH (09:58)
[2017-10-10 10:08] VITALS: BP 115/57
--- NOTE | 2017-10-10 23:13 | DIS ---
DATE OF ADMISSION: 09/23/2017 DATE OF DISCHARGE: 10/10/2017 DISCHARGE DIAGNOSES: 1. 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 2. Small cell lung cancer with planned chemotherapy on an outpatient basis. 3. Chronic obstructive pulmonary disease. 4. Hypertension, stable. 5. Peripheral vascular disease, stable. 6. Right hemiparesis secondarily to metastatic small cell lung cancer, improved. CONSULTATIONS: Dr. Fonseca with Neurosurgical Service. Dr. Dalton with Pulmonology Service. Dr. Nick galvan with Cardiology Service. Dr. Jacob Olmos with Radiation Oncology Service. Medical Oncology Ser vice. PERTINENT LABORATORY AND X-RAY FINDINGS: Sodium range between 132-137, phosphorus range between 2.5- 3.5, magnesium range between 1.9-2.0, albumin range between 3.2-3.6. CBC showed a white blood cell c ount range between 10.1-15.7. Bronchial washings of the right dated 09/26/2017 showed normal respira tory wood. AFB culture and smear dated 09/26/[address] of the brain without contrast dated 09/23/2017 showed hemorrhagic metastatic lesions with large lesion in the left cerebral hemisphere wi th resultant vasogenic edema, mass effect and midline shift. MRI of the brain dated 09/24/2017 showe d 3 intracranial lesions, largest in the parietooccipital region on the left, consistent with metasta tic process. Two larger lesions with evidence of hemorrhage in the left-sided lesion and severe vaso genic edema and mass effect. CT of the chest, abdomen and pelvis dated 09/23/2017 showed right hilar mass with extension into the bronchus intermedius and right main stem bronchus. No postobstructive changes noted. Patchy nodular opacities in each lower lobe, question of metastatic process. Right a drenal nodule noted. 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 2D transthoracic echocardiogram dated 09/27/2017 showed ejection fraction of 55%-60%. Mild aortic re gurgitation. Mild tricuspid regurgitation. Portable chest x-ray dated 10/08/2017 showed no acute ca rdiopulmonary process. HOSPITAL COURSE: The patient was initially admitted after presenting with right hemiparesis, with ge neralized weakness, with short- and long-term memory deficits. The patient underwent general evaluat ion including CT of the brain showing evidence of multiple lesions consistent with metastatic process . The patient was also noted with vasogenic edema and mass effect, initiated on IV Decadron and Kepp ra. The patient was initially evaluated by the Neurosurgical Service; however, due to the multiplici ty of the lesions, is not deemed an appropriate candidate for surgical intervention. The patient was held on all aspirin and Plavix, which the patient had been taking chronically and monitored with ser ial neurologic exams. The patient underwent CT of the chest, abdomen, and pelvis showing a primary p rocess in the right lung earl with bronchogenic extension. Consultation was obtained by the Pulmon ology Service, at which point the patient underwent bronchoscopy with biopsy confirmation of small ce ll lung carcinoma. The patient was evaluated by Medical Oncology Service and deemed an appropriate c andidate to initiate x-ray therapy for the multiple metastatic brain lesions. The patient continued on Decadron and Keppra throughout her hospital course, stabilizing and improving with regard to right upper and lower extremity weakness, as well as memory deficits and speech pattern. The patient's ho spital course was prolonged due to completion of x-ray therapy to the brain lesions during her hospit al stay. Current recommendations are to follow up in an expeditious fashion to initiate chemotherapy on an outpatient basis. The patient overall remained clinically stable during the hospital course, tolerating regular oral intake, voiding appropriately with stable vital signs. I have examined the p atient at the time of discharge and discussed followup and discharge planning with the patient and sp ouse, verbalizing agreement and understanding of discharge plan. Overall, the patient clinically sta ble and ready for discharge, 10/10/2017. DISCHARGE MEDICATIONS: 1. Enteric coated aspirin 81 mg 1 tab p.o. daily. 2. Lipitor 10 mg p.o. daily. 3. Decadron 4 mg p.o. t.i.d. x7 days, followed by 4 mg p.o. b.i.d. x7 days, followed by 4 mg p.o. da jesse x7 days. 4. DuoNeb 3 mL nebulized q.4 hours p.r.n. 5. Keppra 500 mg p.o. b.i.d. 6. Metoprolol tartrate 25 mg p.o. b.i.d. 7. Mirtazapine 15 mg p.o. daily. FOLLOWUP: The patient may follow up with her primary care provider, Dr. Lopez in [place], [place]. The patient will follow up with Dr. Jacob Olmos with Radiation Oncology Service and to call his off ice for appointment time and date. CONDITION ON DISCHARGE: Fair. ACTIVITY: Ad-anabella. DIET: Regular. CODE STATUS: FULL. DISPOSITION: Home, 10/10/2017. Total time preparing and coordinating discharge was 35 minutes.
[2017-10-24 09:19] LABS: Fungus Culture Final report (.)
== END 2017-10-10 14:53 | disposition home or self-care (01) | DRG 166 ==
LOC: ERS 16:34 → 2SE 17:53 → ONC 09-28 14:44
PROVIDERS: ADMIT Surgery; ATTEND Surgery
PROC: 0BB38ZX Excision of Right Main Bronchus, Via Natural or Artificial Opening Endoscopic, Diagnostic (ICD-10-PCS; principal; 2017-09-26)
PROC: 0B9D8ZX Drainage of Right Middle Lung Lobe, Via Natural or Artificial Opening Endoscopic, Diagnostic (ICD-10-PCS; 2017-09-26)
DX: C34.81 Malignant neoplasm of overlapping sites of right bronchus and lung (principal); G93.6 Cerebral edema; G93.40 Encephalopathy, unspecified; I47.2 Ventricular tachycardia; C79.31 Secondary malignant neoplasm of brain; G81.91 Hemiplegia, unspecified affecting right dominant side; J44.1 Chronic obstructive pulmonary disease with (acute) exacerbation; Z68.1 Body mass index [BMI] 19.9 or less, adult; I44.7 Left bundle-branch block, unspecified; I73.9 Peripheral vascular disease, unspecified; I10 Essential (primary) hypertension; Z79.02 Long term (current) use of antithrombotics/antiplatelets; Z79.82 Long term (current) use of aspirin; R63.4 Abnormal weight loss; Z95.820 Peripheral vascular angioplasty status with implants and grafts; Z87.891 Personal history of nicotine dependence; E78.00 Pure hypercholesterolemia, unspecified; I25.10 Atherosclerotic heart disease of native coronary artery without angina pectoris; E27.9 Disorder of adrenal gland, unspecified; R40.2413 Glasgow coma scale score 13-15, at hospital admission
CPT/HCPCS: 36415; 70450; 70553; 71045; 71260; 74177; 77014; 77290; 77307; 77334; 77336; 77412; 77417; 80048; 80053; 80069; 81003; 81015; 83735; 85014; 85018; 85025; 85049; 85610; 85730; 86850; 86900; 86901; 87070; 87102; 87116; 87205; 87206; 88112; 88305; 88313; 88341; 88342; 93005; 93306; 94640; 94760; A4216; G8978-GP-CK; G8978-GP-CL; G8979-GP-CI; G8979-GP-CJ; G8987-GO-CL; G8988-GO-CJ; G8996-GN-CH; G8997-GN-CH; J1100; J1953; J1956; J2001; J2405; J2704; J3010; J7050; J7620; J8540; S0028